=== PATIENT | male | born 1970 | race Two or more races ===

== ENCOUNTER 2022-10-20 22:11 | Emergency (ER) | payer OTHER ==
[2022-10-20] MEDS ORDERED: KETOROLAC 15 MG/ML 1 ML VIAL IM STA (22:33)
[2022-10-20] MEDS ORDERED: DEXAMETHASONE SOD PHOSPHATE 10 MG/ML 1 ML VIAL IM STA (22:33)
--- NOTE | 2022-10-20 22:36 | ED ---
General Adult HPI <Jorge Jean - Last Filed: 10/20/22 22:35> <Marivel Grossman - Last Filed: 10/21/22 16:37> - General Stated complaint: Suicidal, back pain Time Seen by Provider: 10/20/22 22:14 - History of Present Illness Initial comments: Dictation was produced using [employer] dictation software. please excuse any grammatical, word or spelling errors. Chief Complaint: 52-year-old male presents with suicidal ideation History of Present Illness: 52-year-old male he presents with suicidal ideation. He wants a mental health evaluation does not have a specific plan. Patient was just admitted to [facility] detox facility. Patient allegedly had an exacerbation of his chronic back pain. He was denied his home pain medications to treat his back pain because it contains opiates. He was given the option to leave. He discharged himself to [facility] on [facility] [place] into our emergency department. Denies any visual or auditory hallucinations. Patient isn't suicidal for several months since relapsing on crack cocaine The ROS documented in this emergency department record has been reviewed and confirmed by me. Those systems with pertinent positive or negative responses have been documented in the HPI. All other systems are other negative and/or noncontributory. (Jorge Jean) - Related Data Allergies Allergy/AdvReac Type Severity Reaction Status Date / Time No Known Allergies Allergy Verified 10/20/22 22:42 Review of Systems ROS Other: All systems not noted in ROS Statement are negative. <Jorge Jean - Last Filed: 10/20/22 22:35> ROS Other: All systems not noted in ROS Statement are negative. <Marivel Grossman - Last Filed: 10/21/22 16:37> ROS Statement: Those systems with pertinent positive or pertinent negative responses have been documented in the HPI. General Exam <Jorge Jean - Last Filed: 10/20/22 22:35> - General Exam Comments Initial Comments: PHYSICAL EXAM: General Impression: Alert and oriented x3, not in acute distress HEENT: Normocephalic atraumatic, extra-ocular movements intact, pupils equal and reactive to light bilaterally, mucous membranes moist. Cardiovascular: Heart regular rate and rhythm Chest: Able to complete full sentences, no retractions, no tachypnea Abdomen: abdomen soft, non-tender, non-distended, no organomegaly Musculoskeletal: Pulses present and equal in all extremities, no peripheral edema Motor: no focal deficits noted Neurological: CN II-XII grossly intact, no focal motor or sensory deficits noted Skin: Intact with no visualized rashes Psych: Normal affect and mood (Jorge Jean) Course Vital Signs 10/20/22 10/21/22 10/21/22 22:42 00:46 03:35 Temperature 97.5 F L Pulse Rate 89 78 Respiratory 18 16 16 Rate Blood Pressure 129/98 128/78 O2 Sat by Pulse 100 95 Oximetry 10/21/22 10/21/22 07:01 11:40 Temperature 98.0 F Pulse Rate 69 Respiratory 16 18 Rate Blood Pressure 103/67 O2 Sat by Pulse 97 Oximetry Medical Decision Making <Jorge Jean - Last Filed: 10/20/22 22:35> - Medical Decision Making Was pt. sent in by a medical professional or institution (, PA, SIGNS SALES REPRESENTATIVE, urgent care, hospital, or longterm...) When possible be specific @ -No Did you speak to anyone other than the patient for history (EMS, parent, family, police, friend...)? What history was obtained from this source @ -No Did you review nursing and triage notes (agree or disagree)? Why? @ -I reviewed and agree with nursing and triage notes Were old charts reviewed (outside hosp., previous admission, EMS record, old EKG, old radiological studies, urgent care reports/EKG's, longterm records)? Report findings @ -No old charts were reviewed Differential Diagnosis (chest pain, altered mental status, abdominal pain women, abdominal pain men, vaginal bleeding, musculoskeletal, weakness, fever, dyspnea, syncope, headache, dizziness, GI bleed, back pain, seizure, CVA, palpatations, mental health)? @ -Differential Mental Health: Depression, anxiety, bipolar, psychosis, schizophrenia, borderline personality, situational depression, adjustment disorder, behavioral disorder, brain tumor, malingering, substance abuse, encephalopathy, medication reaction, dementia, hypothyroidism, degenerative neurologic disorder, lupus.... This is not meant to be all-inclusive list EKG interpreted by me (3pts min.). @ -None done X-rays interpreted by me (1pt min.). @ -None done CT interpreted by me (1pt min.). @ -None done U/S interpreted by me (1pt. min.). @ -None done What testing was considered but not performed or refused? (CT, X-rays, U/S, labs)? Why? @ -None What meds were considered but not given or refused? Why? @ -None Did you discuss the management of the patient with other professionals (professionals i.e. , PA, SIGNS SALES REPRESENTATIVE, lab, RT, psych nurse, social media executive, casket upholsterer, teacher, first aid officer, rn field case manager)? Give summary @ -No Was smoking cessation discussed for >3mins.? @ -No Was critical care preformed (if so, how long)? @ -No Were there social determinants of health that impacted care today? How? (Homelessness, low income, unemployed, alcoholism, drug addiction, transportation, low edu. Level, literacy, decrease access to med. care, skilled nursing, rehab)? @ -No Was there de-escalation of care discussed even if they declined (Discuss DNR or withdrawal of care, Hospice)? DNR status @ -No What co-morbidities impacted this encounter? (DM, HTN, Smoking, COPD, CAD, Cancer, CVA, ARF, Chemo, Hep., AIDS, mental health diagnosis, sleep apnea, morbid obesity)? @ -None Was patient admitted / discharged? Hospital course, mention meds given and route, prescriptions, significant lab abnormalities, going to OR and other pertinent info. @ -Old male seeking mental health evaluation. Patient reports suicidality. Vital signs stable. Physical examination is benign. Patient requesting I am treatment for acute on chronic back pain. Patient medically cleared for EPS. Undiagnosed new problem with uncertain prognosis? @ -No Drug Therapy requiring intensive monitoring for toxicity (Heparin, Nitro, Insul in, Cardizem)? @ -No Were any procedures done? @ -No Diagnosis/symptom? Acute, or Chronic, or Acute on Chronic? Uncomplicated (without systemic symptoms) or Complicated (systemic symptoms)? @ -1. Suicidal ideation Side effects of treatment? @ -No Exacerbation, Progression, or Severe Exacerbation? @ -No Poses a threat to life or bodily function? How? (Chest pain, [place], [place], pneumonia, PE, COPD, DKA, ARF, appy, cholecystitis, CVA, Diverticulitis, Homicidal, Suicidal, threat to staff... and all critical care pts) @ -yes (Jorge Jean) - Lab Data Lab Results 10/21/22 10/21/22 Range/Units 04:17 04:17 Urine Color Yellow Urine Appearance Clear (Clear) Urine pH 6.0 (5.0-8.0) Ur Specific [place] 1.022 (1.001-1.035) Urine Protein Negative (Negative) Urine Glucose (UA) Negative (Negative) Urine Ketones Negative (Negative) Urine Blood Negative (Negative) Urine Nitrite Negative (Negative) Urine Bilirubin Negative (Negative) Urine Urobilinogen <2.0 (<2.0) mg/dL Ur Leukocyte Esterase Negative (Negative) Urine Opiates Screen Not Detected (NotDetected) Ur Oxycodone Screen Not Detected (NotDetected) Urine Methadone Screen Not Detected (NotDetected) Ur Propoxyphene Screen Not Detected (NotDetected) Ur Barbiturates Screen Not Detected (NotDetected) U Tricyclic Antidepress Not Detected (NotDetected) Ur Phencyclidine Scrn Not Detected (NotDetected) Ur Amphetamines Screen Not Detected (NotDetected) U Methamphetamines Scrn Not Detected (NotDetected) U Benzodiazepines Scrn Not Detected (NotDetected) Urine Cocaine Screen Not Detected (NotDetected) U Marijuana (THC) Screen Detected H (NotDetected) Disposition <Jorge Jean - Last Filed: 10/20/22 22:35> Is patient prescribed a controlled substance at d/c from ED?: No Time of Disposition: 16:37 <Marivel Grossman - Last Filed: 10/21/22 16:37> Clinical Impression: Depression Disposition: HOME SELF-CARE Condition: Stable Instructions (If sedation given, give patient instructions): Depression in Older Adults (ED) Referrals: None,Stated [REFERRING] - 1-2 days
[2022-10-21] MEDS ORDERED: MAG HYDROX/AL HYDROX/SIMETH 30 ML CUP PO PRN (01:58)
[2022-10-21] MEDS ORDERED: traZODone HCL 50 MG TAB PO PRN (01:58)
[2022-10-21] MEDS ORDERED: MAGNESIUM HYDROXIDE 2,400 MG/30 ML CUP PO PRN (01:58)
[2022-10-21] MEDS ORDERED: OLANZapine 10 MG VIAL IM PRN (01:58)
[2022-10-21] MEDS ORDERED: OLANZapine 5 MG TAB PO PRN (01:58)
[2022-10-21] MEDS ORDERED: IBUPROFEN 600 MG TAB PO PRN (01:58)
[2022-10-21] MEDS ORDERED: ACETAMINOPHEN TAB 325 MG TAB PO PRN (01:58)
[2022-10-21] MEDS ORDERED: hydrOXYzine pamoate 25 MG CAP PO PRN (02:02)
[2022-10-21] MEDS ORDERED: hydrOXYzine HCL 50 MG/ML 1 ML VIAL IM PRN (02:02)
[2022-10-21 04:44] LABS: Appearance,Urine Clear (Clear); Bilirubin,Urine Negative (Negative); Blood,Urine Negative (Negative); Color,Urine Yellow; Glucose,Urine (UA) Negative (Negative); Ketones,Urine Negative (Negative); Leukocyte Esterase,Urine Negative (Negative); Nitrite,Urine Negative (Negative); Protein,Urine Negative (Negative); Specific Gravity,Urine 1.022 (1.001-1.035); Urobilinogen,Urine <2.0 mg/dL (<2.0)
[2022-10-21 05:03] LABS: Amphetamine Screen,Urine Not Detected (NotDetected); Barbiturate Screen,Urine Not Detected (NotDetected); Benzodiazepines Screen,Urine Not Detected (NotDetected); Cocaine Screen,Urine Not Detected (NotDetected); Methadone Screen, Urine Not Detected (NotDetected); Opiate Screen,Urine Not Detected (NotDetected); Oxycodone Screen, Urine Not Detected (NotDetected); Phencyclidine Screen,Urine Not Detected (NotDetected); Tricyclic Antidepressant,Urine Not Detected (NotDetected); Urn Cannabinoid Scrn Detected (NotDetected)
[2022-10-21] MEDS ORDERED: NICOTINE 21MG/24HR PATCH TRANSDERM SCH (09:00)
[2022-10-21 11:41] VITALS: RESP 18; TEMP 98
[2022-10-21 16:51] VITALS: BP 144/74; PULSE 83
== END 2022-10-21 17:01 | disposition home or self-care (01) ==
LOC: EC 22:11
DX: F32.A Depression, unspecified (principal)
CPT/HCPCS: 82075; 81003; 80306; 99285; 96372 ×2; S4990; J1100; J1885

== ENCOUNTER 2022-10-22 12:24 | Inpatient (IN) | payer OTHER ==
--- NOTE | 2022-10-22 12:40 | ED ---
General Adult HPI - General Chief complaint: Altered Mental Status Stated complaint: Altered Mental Status Time Seen by Provider: 10/22/22 12:27 Source: patient, EMS, RN notes reviewed Mode of arrival: EMS Limitations: altered mental status - History of Present Illness Initial comments: Patient is a 52-year-old male presenting to the emergency department with concern for change in mental status. Patient reportedly left [facility] a couple hours ago and was there for depression. Patient is drowsy and will wake up and answer 1 word when continuously prompted. Patient is a poor historian. Unclear patient has history of similar symptoms previously. Patient denies taking any substances. - Related Data Allergies Allergy/AdvReac Type Severity Reaction Status Date / Time No Known Allergies Allergy Verified 10/20/22 22:42 Review of Systems ROS Statement: Those systems with pertinent positive or pertinent negative responses have been documented in the HPI. ROS Other: All systems not noted in ROS Statement are negative. Constitutional: Denies: fever ENT: Denies: ear pain Respiratory: Denies: cough Cardiovascular: Denies: chest pain Endocrine: Denies: fatigue Gastrointestinal: Denies: abdominal pain Neurological: Reports: as per HPI Psychiatric: Reports: as per HPI Past Medical History Additional Past Medical History / Comment(s): CLBP Past Surgical History: No Surgical Hx Reported Past Psychological History: Anxiety, Depression Smoking Status: Current every day smoker Past Alcohol Use History: Occasional Past Drug Use History: Cocaine General Exam Limitations: altered mental status General appearance: other (Drowsy. Arousable to voice) Head exam: Present: atraumatic Eye exam: Present: normal appearance, PERRL, EOMI ENT exam: Present: normal oropharynx Neck exam: Present: normal inspection. Absent: tenderness, meningismus Respiratory exam: Present: normal lung sounds bilaterally Cardiovascular Exam: Present: regular rate, normal rhythm GI/Abdominal exam: Present: soft. Absent: tenderness Extremities exam: Present: normal inspection Neurological exam: Present: altered, CN II-XII intact. Absent: motor sensory deficit Expanded Neurological exam: Present: protecting the airway Patient oriented to: Present: person, place. Absent: time Motor strength exam: RUE: 5, LUE: 5, RLE: 5, LLE: 5 Eye Response: (4) open spontaneously Motor Response: (6) obeys commands Verbal Response: (4) confused conversation Psychiatric exam: Present: flat affect Skin exam: Present: normal color Course Vital Signs 10/22/22 12:26 Temperature 97.6 F Pulse Rate 91 Respiratory 18 Rate Blood Pressure 122/86 O2 Sat by Pulse 97 Oximetry EKG Findings - EKG Results: EKG: interpreted by МАРИНАD, sinus rhythm, normal axis, normal QRS, normal ST/T Medical Decision Making - Medical Decision Making Was pt. sent in by a medical professional or institution (, BRAULIO, CHILDCARE WORKER, urgent care, hospital, or [facility]...) When possible be specific @ -No Did you speak to anyone other than the patient for history (EMS, parent, family, police, friend...)? What history was obtained from this source @ -EMS tells right history as patient is a poor historian and with decreased responsiveness Did you review nursing and triage notes (agree or disagree)? Why? @ -I reviewed and agree with nursing and triage notes Were old charts reviewed (outside hosp., previous admission, EMS record, old EKG, old radiological studies, urgent care reports/EKG's, mcc records)? Report findings @ -Discharge summary reviewed with limited information from [facility] Differential Diagnosis (chest pain, altered mental status, abdominal pain women, abdominal pain men, vaginal bleeding, weakness, fever, dyspnea, syncope, headache, dizziness, GI bleed, back pain, seizure, CVA, palpatations, mental health, musculoskeletal)? @ -Differential Altered Mental Status: Hypoglycemia, DKA, hypercapnia, ETOH, overdose, CO poisoning, trauma, myxedema coma, HTN encephalopathy, infection, encephalitis, psychosis, intercranial hemorrhage, hepatic encephalopathy, meningitis, CVA, this is not meant to be an all-inclusive list EKG interpreted by me (3pts min.). @ -As above X-rays interpreted by me (1pt min.). @ -Chest x-ray shows no acute process CT interpreted by me (1pt min.). @ -CT brain reviewed report U/S interpreted by me (1pt. min.). @ -None done What testing was considered but not performed or refused? (CT, X-rays, U/S, l abs)? Why? @ -None What meds were considered but not given or refused? Why? @ -None Did you discuss the management of the patient with other professionals (professionals i.e. BRAULIO Hollins, CHILDCARE WORKER, lab, RT, psych nurse, mental health social worker, blueprint cutter, teacher, forestry technical officer, nurse case management)? Give summary @ -Case was discussed with Dr. Reyes, who will admit covering hospital call. Was smoking cessation discussed for >3mins.? @ -No Was critical care preformed (if so, how long)? @ -No Were there social determinants of health that impacted care today? How? (Homelessness, low income, unemployed, alcoholism, drug addiction, tra nsportation, low edu. Level, literacy, decrease access to med. care, correction, rehab)? @ -No Was there de-escalation of care discussed even if they declined (Discuss DNR or withdrawal of care, Hospice)? DNR status @ -No What co-morbidities impacted this encounter? (DM, HTN, Smoking, COPD, CAD, Cancer, CVA, ARF, Chemo, Hep., AIDS, mental health diagnosis, sleep apnea, morbid obesity)? @ -None Was patient admitted / discharged? Hospital course, mention meds given and route, prescriptions, significant lab abnormalities, going to OR and other pertinent info. @ -Patient reevaluated and unchanged. Etiology of altered mental status is unclear. Patient does have history of cocaine use with recent abnormal drug screen. Patient also has recent complaints of depression with 2 recent visits. Patient will be admitted with neurology and psychiatry consult. Undiagnosed new problem with uncertain prognosis? @ -No Drug Therapy requiring intensive monitoring for toxicity (Heparin, Nitro, Insulin, Cardizem)? @ -No Were any procedures done? @ -No Diagnosis/symptom? @ -Altered mental status Acute, or Chronic, or Acute on Chronic? @ -Acute Uncomplicated (without systemic symptoms) or Complicated (systemic symptoms)? @ -default Side effects of treatment? @ -No Exacerbation, Progression, or Severe Exacerbation? @ -No Poses a threat to life or bodily function? How? (Chest pain, [place], [place], pneumonia, PE, COPD, DKA, ARF, appy, cholecystitis, CVA, Diverticulitis, Homicidal, Suicidal, threat to staff... and all critical care pts) @ -No - Lab Data Result diagrams: 10/22/22 12:39 10/22/22 12:39 Lab Results 10/22/22 10/22/22 10/22/22 Range/Units 12:39 12:39 12:39 WBC 11.0 H (3.8-10.6) k/uL RBC 4.20 L (4.30-5.90) m/uL Hgb 13.5 (13.0-17.5) gm/dL Hct 39.6 (39.0-53.0) % MCV 94.4 (80.0-100.0) fL MCH 32.1 (25.0-35.0) pg MCHC 34.0 (31.0-37.0) g/dL RDW 12.7 (11.5-15.5) % Plt Count 193 (150-450) k/uL MPV 9.1 Neutrophils % 76 % Lymphocytes % 17 % Monocytes % 5 % Eosinophils % 1 % Basophils % 0 % Neutrophils # 8.4 H (1.3-7.7) k/uL Lymphocytes # 1.9 (1.0-4.8) k/uL Monocytes # 0.6 (0-1.0) k/uL Eosinophils # 0.1 (0-0.7) k/uL Basophils # 0.0 (0-0.2) k/uL PT 10.5 (9.0-12.0) sec INR 1.0 (<1.2) APTT 22.8 (22.0-30.0) sec Sodium (137-145) mmol/L Potassium (3.5-5.1) mmol/L Chloride (98-107) mmol/L Carbon Dioxide (22-30) mmol/L Anion Gap mmol/L BUN (9-20) mg/dL Creatinine (0.66-1.25) mg/dL Est GFR (CKD-EPI)AfAm (>60 ml/min/1.73 sqM) Est GFR (CKD-EPI)NonAf (>60 ml/min/1.73 sqM) Glucose (74-99) mg/dL POC Glucose (mg/dL) (70-110) mg/dL POC Glu Display Specialist ID Calcium (8.4-10.2) mg/dL Total Bilirubin (0.2-1.3) mg/dL AST (17-59) U/L ALT (4-49) U/L Alkaline Phosphatase (38-126) U/L Troponin I (0.000-0.034) ng/mL Total Protein (6.3-8.2) g/dL Albumin (3.5-5.0) g/dL Urine Color Light Yellow Urine Appearance Clear (Clear) Urine pH 6.0 (5.0-8.0) Ur Specific [place] 1.014 (1.001-1.035) Urine Protein Negative (Negative) Urine Glucose (UA) Negative (Negative) Urine Ketones Negative (Negative) Urine Blood Negative (Negative) Urine Nitrite Negative (Negative) Urine Bilirubin Negative (Negative) Urine Urobilinogen <2.0 (<2.0) mg/dL Ur Leukocyte Esterase Negative (Negative) Salicylates mg/dL Urine Opiates Screen Not Detected (NotDetected) Ur Oxycodone Screen Not Detected (NotDetected) Urine Methadone Screen Not Detected (NotDetected) Ur Propoxyphene Screen Not Detected (NotDetected) Acetaminophen ug/mL Ur Barbiturates Screen Not Detected (NotDetected) U Tricyclic Antidepress Detected H (NotDetected) Ur Phencyclidine Scrn Not Detected (NotDetected) Ur Amphetamines Screen Not Detected (NotDetected) U Methamphetamines Scrn Not Detected (NotDetected) U Benzodiazepines Scrn Not Detected (NotDetected) Urine Cocaine Screen Not Detected (NotDetected) U Marijuana (THC) Screen Not Detected (NotDetected) Serum Alcohol mg/dL 10/22/22 10/22/22 10/22/22 Range/Units 12:39 12:39 12:41 WBC (3.8-10.6) k/uL RBC (4.30-5.90) m/uL Hgb (13.0-17.5) gm/dL Hct (39.0-53.0) % MCV (80.0-100.0) fL MCH (25.0-35.0) pg MCHC (31.0-37.0) g/dL RDW (11.5-15.5) % Plt Count (150-450) k/uL MPV Neutrophils % % Lymphocytes % % Monocytes % % Eosinophils % % Basophils % % Neutrophils # (1.3-7.7) k/uL Lymphocytes # (1.0-4.8) k/uL Monocytes # (0-1.0) k/uL Eosinophils # (0-0.7) k/uL Basophils # (0-0.2) k/uL PT (9.0-12.0) sec INR (<1.2) APTT (22.0-30.0) sec Sodium 136 L (137-145) mmol/L Potassium 4.1 (3.5-5.1) mmol/L Chloride 108 H (98-107) mmol/L Carbon Dioxide 25 (22-30) mmol/L Anion Gap 3 mmol/L BUN 21 H (9-20) mg/dL Creatinine 0.95 (0.66-1.25) mg/dL Est GFR (CKD-EPI)AfAm >90 (>60 ml/min/1.73 sqM) Est GFR (CKD-EPI)NonAf >90 (>60 ml/min/1.73 sqM) Glucose 88 (74-99) mg/dL POC Glucose (mg/dL) 95 (70-110) mg/dL POC Glu Display Specialist ID Baljinder Ramírez Calcium 8.4 (8.4-10.2) mg/dL Total Bilirubin 1.2 (0.2-1.3) mg/dL AST 18 (17-59) U/L ALT 18 (4-49) U/L Alkaline Phosphatase 51 (38-126) U/L Troponin I <0.012 (0.000-0.034) ng/mL Total Protein 6.7 (6.3-8.2) g/dL Albumin 3.8 (3.5-5.0) g/dL Urine Color Urine Appearance (Clear) Urine pH (5.0-8.0) Ur Specific [place] (1.001-1.035) Urine Protein (Negative) Urine Glucose (UA) (Negative) Urine Ketones (Negative) Urine Blood (Negative) Urine Nitrite (Negative) Urine Bilirubin (Negative) Urine Urobilinogen (<2.0) mg/dL Ur Leukocyte Esterase (Negative) Salicylates <1.0 mg/dL Urine Opiates Screen (NotDetected) Ur Oxycodone Screen (NotDetected) Urine Methadone Screen (NotDetected) Ur Propoxyphene Screen (NotDetected) Acetaminophen <10.0 ug/mL Ur Barbiturates Screen (NotDetected) U Tricyclic Antidepress (NotDetected) Ur Phencyclidine Scrn (NotDetected) Ur Amphetamines Screen (NotDetected) U Methamphetamines Scrn (NotDetected) U Benzodiazepines Scrn (NotDetected) Urine Cocaine Screen (NotDetected) U Marijuana (THC) Screen (NotDetected) Serum Alcohol <10 mg/dL Disposition Clinical Impression: Altered mental status Disposition: ADMITTED IP TO THIS HOSP Is patient prescribed a controlled substance at d/c from ED?: No Referrals: Nonstaff,Physician [Primary Care Provider] - 1-2 days Time of Disposition: 14:06
[2022-10-22 12:43] LABS: Glucose,Whole Blood 95 mg/dL (70-110)
[2022-10-22 12:56] LABS: Basophils % (A) 0 %; Eosinophils # (A) 0.1 k/uL (0-0.7); Eosinophils % (A) 1 %; HCT 39.6 % (39.0-53.0); HGB 13.5 gm/dL (13.0-17.5); Lymphocytes # (A) 1.9 k/uL (1.0-4.8); Lymphocytes % (A) 17 %; MCH 32.1 pg (25.0-35.0); MCV 94.4 fL (80.0-100.0); Mean Platelet Volume 9.1; Monocytes # (A) 0.6 k/uL (0-1.0); Monocytes % (A) 5 %; Neutrophils # (A) 8.4 k/uL (1.3-7.7); Neutrophils % (A) 76 %; Platelet Count 193 k/uL (150-450); RDW 12.7 % (11.5-15.5)
[2022-10-22 12:58] LABS: Appearance,Urine Clear (Clear); Bilirubin,Urine Negative (Negative); Blood,Urine Negative (Negative); Color,Urine Light Yellow; Glucose,Urine (UA) Negative (Negative); Ketones,Urine Negative (Negative); Leukocyte Esterase,Urine Negative (Negative); Nitrite,Urine Negative (Negative); Protein,Urine Negative (Negative); Specific Gravity,Urine 1.014 (1.001-1.035); Urobilinogen,Urine <2.0 mg/dL (<2.0)
[2022-10-22 13:01] LABS: ALT 18 U/L (4-49); AST 18 U/L (17-59); Acetaminophen <10.0 ug/mL; African American GFR (CKD) >90 (>60 ml/min/1.73 sqM); Albumin 3.8 g/dL (3.5-5.0); Alcohol <10 mg/dL; Alkaline Phosphatase 51 U/L (38-126); Anion Gap 3 mmol/L; Blood Urea Nitrogen 21 mg/dL (9-20); Calcium 8.4 mg/dL (8.4-10.2); Carbon Dioxide 25 mmol/L (22-30); Chloride 108 mmol/L (98-107); Glucose 88 mg/dL (74-99); Non-African American GFR(CKD) >90 (>60 ml/min/1.73 sqM); Potassium 4.1 mmol/L (3.5-5.1); Salicylate <1.0 mg/dL; Sodium 136 mmol/L (137-145); Total Bilirubin 1.2 mg/dL (0.2-1.3); Total Protein 6.7 g/dL (6.3-8.2)
[2022-10-22 13:16] LABS: Amphetamine Screen,Urine Not Detected (NotDetected); Benzodiazepines Screen,Urine Not Detected (NotDetected); Cocaine Screen,Urine Not Detected (NotDetected); Opiate Screen,Urine Not Detected (NotDetected); Phencyclidine Screen,Urine Not Detected (NotDetected); Tricyclic Antidepressant,Urine Detected (NotDetected); Urn Cannabinoid Scrn Not Detected (NotDetected)
[2022-10-22 13:17] LABS: Barbiturate Screen,Urine Not Detected (NotDetected); Methadone Screen, Urine Not Detected (NotDetected); Oxycodone Screen, Urine Not Detected (NotDetected)
[2022-10-22 13:24] LABS: Partial Thromboplastin Time 22.8 sec (22.0-30.0); Prothrombin Time 10.5 sec (9.0-12.0)
--- NOTE | 2022-10-22 13:25 | CT ---
EXAMINATION TYPE: CT brain wo con CT DLP: 901.3 mGycm, Automated exposure control for dose reduction was used. DATE OF EXAM: 10/22/2022 1:19 PM COMPARISON: None. CLINICAL INDICATION:Male, 52 years old with history of Altered mental status, Altered mental status. TECHNIQUE: Brain: Multiple axial CT images of the brain were obtained without IV contrast. Coronal and sagittal reformats reviewed. FINDINGS: Brain: Extra-axial spaces: No abnormal extra-axial fluid collections. Ventricular system: Within normal limits Cerebral parenchyma: No acute intraparenchymal hemorrhage or mass effect. The grey-white junction is well differentiated. Cerebellum: Unremarkable. Mass effect: No evidence of midline shift. Intracranial vasculature: Atherosclerotic calcifications of the intracranial vessels. Soft tissues: Normal. Calvarium/osseous structures: No depressed skull fracture. Paranasal sinuses and mastoid air cells: Clear Visualized orbits: Orbital contents are intact. IMPRESSION: No acute intracranial process.
--- NOTE | 2022-10-22 13:52 | XR ---
EXAMINATION TYPE: XR chest 2V DATE OF EXAM: 10/22/2022 1:46 PM COMPARISON: None TECHNIQUE: XR chest 2V Frontal and lateral views of the chest. CLINICAL INDICATION:Male, 52 years old with history of altered mental status; FINDINGS: Lungs/Pleura: There is no evidence of pleural effusion, focal consolidation, or pneumothorax. Pulmonary vascularity: Unremarkable. Heart/mediastinum: Cardiomediastinal silhouette is enlarged. Musculoskeletal: No acute osseous pathology. IMPRESSION: 1. No acute cardiopulmonary disease/process. 2. Mild cardiomegaly.
[2022-10-22] MEDS ORDERED: NALOXONE 0.4 MG/ML 1 ML VIAL IV PRN (14:06)
[2022-10-22] MEDS: SODIUM CHLORIDE 0.9% 1,000 ML IV SCH (14:33)
--- NOTE | 2022-10-22 15:19 | P.HPIM ---
History of Present Illness This is a pleasant 52 years old male with past medical history of anxiety/depression and nicotine dependence Patient is very drowsy and could not provide information, he went up to verbal and tactile stimuli, as her wound about 2 questions and then go back to sleep. And then he mumbles he follows some COMMANDS and simple 1. However patient could denies some the systemic review Further information were obtained from the chart and staff. pt brought in via ems from scene. pt was found wondering around [facility]. pt was recently d/c from [facility] at 9am for depression. pt presents with AMS at this time. Yesterday was in this facility for suicidal ideation Patient is afebrile. Blood pressure is 122/86 at 96/71 Labs showing mild leukocytosis of 11,000, associated CBC, INR, BMP, liver enzymes is unremarkable. Urine analysis is undetectable. Urine drug screen is positive for tricyclic antidepressant. Serum alcohol less than 10. Salicylate less than 1. Acetaminophen was less than 10 Chest x-ray: No acute process, mild cardiomegaly CT of the brain: No acute process. EKG showing normal sinus rhythm at [address]-T changes In the emergency room patient was started on normal saline and admitted with si gns and neuro consult Review of Systems Review of systems CONSTITUTIONAL: No fever, no malaise, no fatigue. HEENT: No recent visual problems or hearing problems. Denied any sore throat. CARDIOVASCULAR: No orthopnea, PND, no palpitations, no syncope. PULMONARY: No shortness of breath, no cough, no hemoptysis. GASTROINTESTINAL: No diarrhea, no nausea, no vomiting, no abdominal pain. Normoactive bowel sounds. NEUROLOGICAL: No headaches, no weakness, no numbness. HEMATOLOGICAL: Denies any bleeding or petechiae. GENITOURINARY: Denies any burning micturition, frequency, or urgency. MUSCULOSKELETAL/RHEUMATOLOGICAL: Denies any joint pain, swelling, or any muscle pain. ENDOCRINE: Denies any polyuria or polydipsia. ROS unobtainable: due to mental status Past Medical History Additional Past Medical History / Comment(s): CLBP Past Surgical History: No Surgical Hx Reported Past Psychological History: Anxiety, Depression Smoking Status: Current every day smoker Past Alcohol Use History: Occasional Past Drug Use History: Cocaine Medications and Allergies Home Medications Medication Instructions Recorded Confirmed Type Albuterol Sulfate [Albuterol 2 puff PO RT-Q6H PRN 10/22/22 10/22/22 History Sulfate Hfa] Cyclobenzaprine [Flexeril] 10 mg PO Q8H PRN 10/22/22 10/22/22 History Ibuprofen [Motrin] 600 mg PO Q6H PRN 10/22/22 10/22/22 History Meloxicam 7.5 mg PO DAILY 10/22/22 10/22/22 History Tamsulosin [Flomax] 0.4 mg PO DAILY 10/22/22 10/22/22 History Vortioxetine Hydrobromide 10 mg PO DAILY 10/22/22 10/22/22 History [Trintellix] traMADol HCL 50 mg PO Q8H PRN 10/22/22 10/22/22 History Allergies Allergy/AdvReac Type Severity Reaction Status Date / Time No Known Allergies Allergy Verified 10/22/22 15:07 Physical Exam Vitals: Vital Signs Temp Pulse Resp BP Pulse Ox 10/22/22 12:26 97.6 F 91 18 122/86 97 Intake and Output 10/21/22 10/22/22 10/22/22 22:59 06:59 14:59 Other: Weight 92.986 kg -GENERAL: The patient awakens to verbal stimuli but doesn't go back to sleep. Excess 1 or 2 questions appropriately and then mumbles. HEENT: Pupils are round and equally reacting to light. EOMI. No scleral icterus. No conjunctival pallor. Normocephalic, atraumatic. No pharyngeal erythema. No thyromegaly. CARDIOVASCULAR: S1 and S2 present. No murmurs, rubs, or gallops. PULMONARY: Chest is clear to auscultation, no wheezing , no crackles. ABDOMEN: Soft, nontender, nondistended, normoactive bowel sounds. No palpable or ganomegaly. MUSCULOSKELETAL: No joint swelling or deformity. EXTREMITIES: No cyanosis, clubbing, or pedal edema. NEUROLOGICAL: Gross neurological examination did not reveal any focal deficits. SKIN: No rashes. no petechiae. Results CBC & Chem 7: 10/22/22 12:39 10/22/22 12:39 Labs: Abnormal Lab Results - Last 24 Hours (Table) 10/22/22 10/22/22 10/22/22 Range/Units 12:39 12:39 12:39 WBC 11.0 H (3.8-10.6) k/uL RBC 4.20 L (4.30-5.90) m/uL Neutrophils # 8.4 H (1.3-7.7) k/uL Sodium 136 L (137-145) mmol/L Chloride 108 H (98-107) mmol/L BUN 21 H (9-20) mg/dL U Tricyclic Antidepress Detected H (NotDetected) Assessment and Plan Assessment: Altered mental status, unknown etiology Borderline hypotension History of depression Plan: Neurologic evaluation with a neuro check c/w iv hydration Consult with neurology and psychiatry service Labs and medication were reviewed.. Continue same treatment. Continue with symptomatic treatment. Resume home medication. Monitor labs and vitals. DVT and GI prophylaxis. Further recommendations as per clinical course of the patient DVT prophylaxis: Subcutaneous heparin GI Prophylaxis: Pepcid Prognosis is guarded
[2022-10-22 16:08] LABS: Alcohol <10 mg/dL
[2022-10-22] MEDS: THIAMINE 100 MG TAB PO SCH (17:44)
[2022-10-22] MEDS: HEPARIN SODIUM,PORCINE/PF 5,000 UNIT/0.5 ML SYRINGE SQ SCH (21:08)
[2022-10-22] MEDS: FAMOTIDINE 20 MG/2 ML VIAL IV SCH (21:08)
[2022-10-23] MEDS: SODIUM CHLORIDE 0.9% 1,000 ML IV SCH ×2 (04:40→18:14)
[2022-10-23 08:33] LABS: Basophils % (A) 0 %; Eosinophils # (A) 0.1 k/uL (0-0.7); Eosinophils % (A) 1 %; HCT 40.9 % (39.0-53.0); HGB 13.7 gm/dL (13.0-17.5); Lymphocytes # (A) 2.6 k/uL (1.0-4.8); Lymphocytes % (A) 33 %; MCH 32.2 pg (25.0-35.0); MCHC 33.6 g/dL (31.0-37.0); MCV 95.9 fL (80.0-100.0); Mean Platelet Volume 9.3; Monocytes # (A) 0.5 k/uL (0-1.0); Monocytes % (A) 6 %; Neutrophils # (A) 4.7 k/uL (1.3-7.7); Neutrophils % (A) 60 %; Platelet Count 197 k/uL (150-450); RBC 4.26 m/uL (4.30-5.90); RDW 12.7 % (11.5-15.5); WBC 7.9 k/uL (3.8-10.6)
[2022-10-23 08:35] LABS: ALT 15 U/L (4-49); AST 16 U/L (17-59); African American GFR (CKD) 88 (>60 ml/min/1.73 sqM); Albumin 3.4 g/dL (3.5-5.0); Albumin/Globulin Ratio 1.3; Alkaline Phosphatase 48 U/L (38-126); Anion Gap 6 mmol/L; Blood Urea Nitrogen 19 mg/dL (9-20); Calcium 8.1 mg/dL (8.4-10.2); Carbon Dioxide 26 mmol/L (22-30); Chloride 105 mmol/L (98-107); Globulin 2.7 g/dL; Glucose 70 mg/dL (74-99); Non-African American GFR(CKD) 76 (>60 ml/min/1.73 sqM); Potassium 4.3 mmol/L (3.5-5.1); Sodium 137 mmol/L (137-145); Total Bilirubin 0.8 mg/dL (0.2-1.3); Total Protein 6.1 g/dL (6.3-8.2)
[2022-10-23] MEDS: HEPARIN SODIUM,PORCINE/PF 5,000 UNIT/0.5 ML SYRINGE SQ SCH ×2 (08:41→21:57)
[2022-10-23] MEDS: THIAMINE 100 MG TAB PO SCH ×2 (08:41→08:42)
[2022-10-23] MEDS: FAMOTIDINE 20 MG/2 ML VIAL IV SCH ×3 (08:41→21:56)
--- NOTE | 2022-10-23 10:03 | P.CNNES ---
History of Present Illness Consult date: 10/23/22 Requesting physician: Alistair Mccall Reason for Consult: ams History of Present Illness: This is a 52-year-old gentleman with history of anxiety, depression, suicidal attempts, cocaine use and nicotine use who presented to our facility because altered mental status. Some of the history is obtained from medical record. Patient stated that he took a bunch of pills but does not recall all of him and he was attempting to kill himself. He stated that he went to the [facility] as a result. Your members taken Flexeril, tramadol and he overtook dose medication but he also states she took other medications and doesn't recall the name. She denies of any headache, focal weakness, numbness, visual disturbance, difficulty swallowing or getting his words out. She denies of any fevers. Per the ED note it seems to the patient was at [facility] and was there for depression. He states that he uses cocaine and less than use it was on 10/11/2022. He stated that he had the multiple foci vital attempts in the past. He denies any history of stroke or seizures. Initially he presented to our facility was altered which has resolved. He does smoke cigarettes. Uses marijuana. He socially drinks alcohol. Patient stated that he has a history of chronic lower back pain with sciatica that is old. Some of the work-up consisted of: Patient is afebrile White blood cells 11K minimally slightly neutrophilic Calcium is 8.4 Sodium is 136 Creatinine is up 0.95 AST and ALT is within normal limits Ammonia is less than 9 Vitamin B12 is 380. Folate is 13.6 TSH is 4.22 Urinalysis is negative for any underlying urinary tract infection Urine drug screen is positive for tricyclic. The rest is not detected. Serum alcohol was less than 10 CT of the head is reported as no acute intracranial process. I personally reviewed the CT of the head and there is no acute or subacute ischemia. Review of Systems Review of system: The 12 point system was reviewed and apparent positive and negative per HPI. Past Medical History Additional Past Medical History / Comment(s): CLBP History of Any Multi-Drug Resistant Organisms: None Reported Past Surgical History: No Surgical Hx Reported Past Psychological History: Anxiety, Depression Smoking Status: Current every day smoker Past Alcohol Use History: Occasional Past Drug Use History: Cocaine Medications and Allergies Home Medications Medication Instructions Recorded Confirmed Type Albuterol Sulfate [Albuterol 2 puff PO RT-Q6H PRN 10/22/22 10/22/22 History Sulfate Hfa] Cyclobenzaprine [Flexeril] 10 mg PO Q8H PRN 10/22/22 10/22/22 History Ibuprofen [Motrin] 600 mg PO Q6H PRN 10/22/22 10/22/22 History Meloxicam 7.5 mg PO DAILY 10/22/22 10/22/22 History Tamsulosin [Flomax] 0.4 mg PO DAILY 10/22/22 10/22/22 History Vortioxetine Hydrobromide 10 mg PO DAILY 10/22/22 10/22/22 History [Trintellix] traMADol HCL 50 mg PO Q8H PRN 10/22/22 10/22/22 History Allergies Allergy/AdvReac Type Severity Reaction Status Date / Time No Known Allergies Allergy Verified 10/22/22 15:07 Physical Examination - Vital Signs Vital Signs: Vital Signs Temp Pulse Pulse Resp BP BP Pulse Ox 10/23/22 02:14 90 18 10/23/22 01:38 97.8 F 80 16 108/70 93 L 10/22/22 21:17 98.0 F 90 18 131/83 97 10/22/22 21:08 90 18 10/22/22 15:41 75 16 10/22/22 15:03 97.9 F 75 16 121/80 97 10/22/22 14:12 80 18 96/71 99 10/22/22 12:26 97.6 F 91 18 122/86 97 Intake and Output 10/22/22 10/23/22 10/23/22 22:59 06:59 14:59 Output Total 750 Balance -750 Output: Urine 750 Other: Voiding Method Urinal Urinal # Voids 2 1 Weight 92.986 kg GENERAL: The patient is lying in bed and is not in acute distress. Skin: Hypopigmentation throughout the body (old). NEUROLOGICAL: Higher mental function: The patient is awake, alert, oriented to self, place and time. Patient is following commands. No aphasia and no neglect. Cranial nerves: The pupils are round, equal and reactive to light and accommodation. Visual chacko are full to confrontation throughout. Extraocular movement is intact no nystagmus is noted. Facial sensation is normal to touch throughout. The facial strength is normal throughout. Hearing is normal bilaterally to hand rub. Tongue is midline and moved [id number] without any difficulty. No dysarthria is noted. Shoulder shrug is normal bilaterally. Motor: The strength is limited over the right lower proximal because of right hip/back pain (old) but raising above gravity. Otherwise. 5 over 5 throughout. Normal tone and bulk. Cerebellum: Normal finger to nose heel to roberto bilaterally. Sensation: Sensation is normal to touch throughout. Reflexes (right/left): 2+ throughout. Plantars are downgoing bilaterally. Results - Laboratory Findings CBC and BMP: 10/23/22 05:25 10/23/22 05:25 Abnormal Lab Findings: Abnormal Labs 10/22/22 10/22/22 10/22/22 12:39 12:39 12:39 WBC 11.0 H RBC 4.20 L Neutrophils # 8.4 H Sodium 136 L Chloride 108 H BUN 21 H U Tricyclic Antidepress Detected H Assessment and Plan Assessment: This is a 52-year-old gentleman who was recently discharged from outside facility because depression and recently he has altered mental status Altered mental status: Toxic encephalopathy and he stated that he overdosed on medications attending that to commit suicide (he took Flexeril, Toradol and stated does not remember other medications). UDS positive for TCA. Mentation has improved and no focal deficits on examination. Multiple suicidal attempts per patient in past Chronic low back pain and right sciatica Depression Cocaine use (last used was on 10/11/2022). UDS positive for TCA Plan: Since the patient does not have any focal deficits and it seems that he is transient confusion was due to toxic encephalopathy in which she overdosed on medication. His mentation has improved. Therefore I will not pursue MRI brain and EEG for now. But if the patient has any further confusions or any focal deficit then recommend proceeding with them. Started the patient on thiamine 100 mg daily. Psychiatry is consulted Patient was counseled on cessation of cocaine use, tobacco use and seeking help for his depression and history of suicidal thoughts. We'll defer the rest of the medical management to the primary team The plan was discussed with patient and his nurse. Thank you for the consultation. If the patient remains stable no further neurological workup. Dr. Hansen will start neurology service tomorrow. Time with Patient: Greater than 30
--- NOTE | 2022-10-23 22:33 | P.PN ---
Subjective This is a pleasant 52 years old male with past medical history of anxiety/depression and nicotine dependence Patient is very drowsy and could not provide information, he went up to verbal and tactile stimuli, as her wound about 2 questions and then go back to sleep. And then he mumbles he follows some COMMANDS and simple 1. However patient vance d denies some the systemic review Further information were obtained from the chart and staff. pt brought in via ems from scene. pt was found wondering around [facility]. pt was recently d/c from [facility] at 9am for depression. pt presents with AMS at this time. Yesterday was in this facility for suicidal ideation Patient is afebrile. Blood pressure is 122/86 at 96/71 Labs showing mild leukocytosis of 11,000, associated CBC, INR, BMP, liver enzymes is unremarkable. Urine analysis is undetectable. Urine drug screen is positive for tricyclic antidepressant. Serum alcohol less than 10. Salicylate less than 1. Acetaminophen was less than 10 Chest x-ray: No acute process, mild cardiomegaly CT of the brain: No acute process. EKG showing normal sinus rhythm at [address]-T changes In the emergency room patient was started on normal saline and admitted with signs and neuro consult 10/23/2022 pt is awake today , say he was trying to kill himself wiht medication inlcuidng 60 pills of flexeril, and unkown amount of pills of tramadol, and a third medication he does not know the name of he admits depression and suicidal ideation and attempt, d/w staff: suicidal precaution , and psych consult and sitter at bed side no need for mri of brain or other neuro w/u as per my discussion with neuro service today his bp is on the low side and pt is asymptomatic, sbp around 90x, before was around 120s, if no improvement we will give more fluids.later on his bp was 120/80 Objective - Vital Signs Vital signs: Vital Signs Temp 97.6 F 10/23/22 15:00 Pulse 80 10/23/22 15:00 Resp 16 10/23/22 15:00 BP 98/62 10/23/22 15:00 Pulse Ox 97 10/23/22 15:00 FiO2 Intake & Output 10/23/22 10/23/22 10/24/22 06:59 18:59 06:59 Output Total 750 1841 Balance -750 -1841 Weight 92.986 kg Output: Urine 750 1841 Other: Voiding Method Urinal Urinal # Voids 1 - Exam -GENERAL: The patient awakens to verbal stimuli but doesn't go back to sleep. Excess 1 or 2 questions appropriately and then mumbles. HEENT: Pupils are round and equally reacting to light. EOMI. No scleral icterus. No conjunctival pallor. Normocephalic, atraumatic. No pharyngeal erythema. No thyromegaly. CARDIOVASCULAR: S1 and S2 present. No murmurs, rubs, or gallops. PULMONARY: Chest is clear to auscultation, no wheezing , no crackles. ABDOMEN: Soft, nontender, nondistended, normoactive bowel sounds. No palpable organomegaly. MUSCULOSKELETAL: No joint swelling or deformity. EXTREMITIES: No cyanosis, clubbing, or pedal edema. NEUROLOGICAL: Gross neurological examination did not reveal any focal deficits. SKIN: No rashes. no petechiae. - Labs CBC & Chem 7: 10/23/22 05:25 10/23/22 05:25 Labs: Abnormal Lab Results - Last 24 Hours (Table) 10/23/22 10/23/22 Range/Units 05:25 05:25 RBC 4.26 L (4.30-5.90) m/uL Glucose 70 L (74-99) mg/dL Calcium 8.1 L (8.4-10.2) mg/dL AST 16 L (17-59) U/L Total Protein 6.1 L (6.3-8.2) g/dL Albumin 3.4 L (3.5-5.0) g/dL Assessment and Plan Assessment: Altered mental status, metabolic encephalopathy derpression and siucidal attempt hypotension, secondary to above, improving medication overdose ,flexeril tramadol and third unknown medication History of depression Plan: Neurologic evaluation with a neuro check c/w iv hydration Consult with neurology and psychiatry service sitter and siucidal ideation Labs and medication were reviewed.. Continue same treatment. Continue with symptomatic treatment. Resume home medication. Monitor labs and vitals. DVT and GI prophylaxis. Further recommendations as per clinical course of the patient DVT prophylaxis: Subcutaneous heparin GI Prophylaxis: Pepcid Prognosis is guarded may consider transfer to psych unit tomorrow if keep improving and appoipiate
[2022-10-24] MEDS: HEPARIN SODIUM,PORCINE/PF 5,000 UNIT/0.5 ML SYRINGE SQ SCH ×2 (09:53→21:18)
[2022-10-24] MEDS: THIAMINE 100 MG TAB PO SCH (09:53)
[2022-10-24] MEDS: FAMOTIDINE 20 MG/2 ML VIAL IV SCH ×2 (09:53→21:17)
[2022-10-24] MEDS: SODIUM CHLORIDE 0.9% 1,000 ML IV SCH ×2 (09:53→21:17)
--- NOTE | 2022-10-24 13:31 | P.CN ---
Psychiatric Consult - . Consult date: 10/24/22 Consult:: 10/24/22 13:01 IDENTIFYING DATA: This patient is a 52-year-old male, currently was living with his girlfriend at her house, has 1 son, worked as a [employer] developer. REASON FOR REFERRAL: Psychiatry was consulted for "altered mental status" HISTORY OF PRESENT ILLNESS: The patient presented to the hospital on 10/22 for altered mental status. According to ER report patient apparently left [facility] a few hours before he was evaluated there for depression and was discharged. Patient was a poor historian at the time of admission to the hospital. Patient's urinalysis was negative and his urine drug screen was positive for TCAs. Patient had apparently reported that he overdosed on various different pills including tramadol and Flexeril. Patient did endorse that it was a suicide attempt and wanted to . Patient was admitted medically and seen today by field underwriter for evaluation. Patient had a one-to-one sitter at his side. He appears to be disinterested in conversation, mildly irritable. He claims that "nothing happened" however one asked more he states that "I took a bunch of pills" and was fairly vague about it. He states that he was "done with life" and has been having more suicidal thoughts lately. States that he is also been feeling more depressed. Claims that he does have some mild anxiety. States that he has been diagnosed with depression and also bipolar disorder in the past. States that he was [facility] years in [facility] and recently released. He claims that the charge was for home invasion. He states that he "lost everything again" and attempted to go to rehab last week for at [place] for his cocaine use. He claims that he lost his car as well due to his finances and also his fiance. He states that he's been using crack cocaine about $250 a day. States that his sleep has been on and off, appetite has been fair. At this time patient denies any homical ideations, intent or plan. Patient denies any auditory, visual hallucinations and denies any paranoia or delusions. Patient claims that he is currently suicidal, no plan. Patients admits to using crack/cocaine as noted above, marijuana occasionally, cigarettes daily, alcohol occasionally. PAST PSYCHIATRIC HISTORY: Patient has a a history of depression and bipolar disorder, polysubstance abuse. Patient denies being on any psychiatric medications currently however states that he was previously on haldol, abilify, prozac and noted a poor response to prozac. Patient denies any previous psychiatric hospitalizations since his [facility] stay where [facility]. Patient denies any psychiatric outpatient follow- up. he states that he has a hx of 5 suicide attempts in the past from overdosing. Additional Past Medical History / Comment(s): CLBP Past Surgical History: No Surgical Hx Reported Past Psychological History: Anxiety, Depression Smoking Status: Current every day smoker Past Alcohol Use History: Occasional Past Drug Use History: Cocaine ALLERGIES: as per EMR. CHEMICAL DEPENDENCY HISTORY: as per HPI. FAMILY PSYCHIATRIC/SUBSTANCE USE HISTORY: mother has depression and brother has bipolar disorder SOCIAL HISTORY: Patient was born and raised in [place], [place], he obtained his GED. currently lives with his girlfriend, in a house, has 1 son, worked as a [employer] developer. claims that was was recently released from [facility] where he spent 17 yrs there for home invasion. MENTAL STATUS EXAM: General Appearance: Patient appears to be well built, white hair, several tattoos, stated age is alert, mildly irritable yet is somewhat cooperative. Pat vicki appears to have fair hygiene and grooming wearing hospital gown with poor eye contact. Behavior: Patient is calmly lying in bed without any agitated behavior. Mildly irritable. Speech: Patient's speech is fluent and nonpressured. [place] and depending. Mood/Affect: Patient reports their mood is "depressed and anxious", affect is congruent Suicidality/Homicidality: Patient denies having any side ideations, endorsing suicidal thoughts. Perceptions: Patient denies any visual hallucinations and denies any auditory hallucinations Though content/process: There is no evidence of any delusional thought content and thought process is linear and goal-directed. Focus on his symptoms and self-harm. Memory and concentration: AOX3, grossly intact for the purposes of this session. Can spell "WORLD" backwards Judgment and insight: poor IMPRESSIONS: Depressive disorder unspecified, rule out bipolar disorder depressed mood versus major depressive disorder Suicide attempt by overdose on medications Cocaine use disorder severe dependence Cannabis use disorder mild abuse Alcohol use disorder mild Nicotine dependence PLAN: -At this time patient DOES meet criteria for inpatient psychiatric admission. -Would recommend the following medication changes/additions: Zoloft 50 mg daily for mood/anxiety, Seroquel 50 mg daily at bedtime for mood stabilization/insomnia. -Continue 1:1 sitter for safety until patient is safely transferred to the mental health unit. -Cannot leave AMA at this time. Patient will need a petition and certification if attempting to leave AMA. -When medically stable, patient is eligible for transfer to a psych bed when available. -Communicated plan to patient's nurse and also with EPS nurse about treatment recommendations. Patient is already petitioned and will need to complete a clinical certificate before transfer. -Psychiatry will sign off at this time -Please contact with any questions. 10/24/22 13:21
[2022-10-24] MEDS ORDERED: CYCLOBENZAPRINE 10 MG TAB PO PRN (20:41)
[2022-10-24] MEDS ORDERED: ALBUTEROL NEBULIZED 2.5 MG/3 ML INHALATION PRN (20:41)
--- NOTE | 2022-10-24 23:23 | P.PN ---
Subjective This is a pleasant 52 years old male with past medical history of anxiety/depression and nicotine dependence Patient is very drowsy and could not provide information, he went up to verbal and tactile stimuli, as her wound about 2 questions and then go back to sleep. And then he mumbles he follows some COMMANDS and simple 1. However patient vance d denies some the systemic review Further information were obtained from the chart and staff. pt brought in via ems from scene. pt was found wondering around [facility]. pt was recently d/c from [facility] [place] at 9am for depression. pt presents with AMS at this time. Yesterday was in this facility for suicidal ideation Patient is afebrile. Blood pressure is 122/86 at 96/71 Labs showing mild leukocytosis of 11,000, associated CBC, INR, BMP, liver enzymes is unremarkable. Urine analysis is undetectable. Urine drug screen is positive for tricyclic antidepressant. Serum alcohol less than 10. Salicylate less than 1. Acetaminophen was less than 10 Chest x-ray: No acute process, mild cardiomegaly CT of the brain: No acute process. EKG showing normal sinus rhythm at [address]-T changes In the emergency room patient was started on normal saline and admitted with signs and neuro consult 10/23/2022 pt is awake today , say he was trying to kill himself wiht medication inlcuidng 60 pills of flexeril, and unkown amount of pills of tramadol, and a third medication he does not know the name of he admits depression and suicidal ideation and attempt, d/w staff: suicidal precaution , and psych consult and sitter at bed side no need for mri of brain or other neuro w/u as per my discussion with neuro service today his bp is on the low side and pt is asymptomatic, sbp around 90x, before was around 120s, if no improvement we will give more fluids.later on his bp was 120/80 10/24/2022 pt is clinically doing well and he looks stable for discharge , he is fully awake and oriented x3, no physical symptoms , he is very withdrawn and staying in bed all time i discussed the case with psychiatrist who accepted the pt to psych unit pt is medically stable for discharge and actually he was discharged to psych unit but this was held for insurance issues per staff pt in am said he does not want to go to psych unit and he was petitioned by staff, cert also is in chart. later on pt told me he is agreeable to be treated in psych unit he agrees with the management plan Objective - Vital Signs Vital signs: Vital Signs Temp 98.6 F 10/24/22 20:00 Pulse 80 10/24/22 20:00 Resp 15 10/24/22 20:00 BP 116/78 10/24/22 20:00 Pulse Ox 95 10/24/22 20:00 FiO2 Intake & Output 10/24/22 10/24/22 10/25/22 06:59 18:59 06:59 Intake Total 118 Balance 118 Intake: Oral 118 Other: Voiding Method Urinal # Voids 2 1 - Exam -GENERAL: The patient awakens to verbal stimuli but doesn't go back to sleep. Excess 1 or 2 questions appropriately and then mumbles. HEENT: Pupils are round and equally reacting to light. EOMI. No scleral icterus. No conjunctival pallor. Normocephalic, atraumatic. No pharyngeal erythema. No thyromegaly. CARDIOVASCULAR: S1 and S2 present. No murmurs, rubs, or gallops. PULMONARY: Chest is clear to auscultation, no wheezing , no crackles. ABDOMEN: Soft, nontender, nondistended, normoactive bowel sounds. No palpable organomegaly. MUSCULOSKELETAL: No joint swelling or deformity. EXTREMITIES: No cyanosis, clubbing, or pedal edema. NEUROLOGICAL: Gross neurological examination did not reveal any focal deficits. SKIN: No rashes. no petechiae. - Labs CBC & Chem 7: 10/23/22 05:25 10/23/22 05:25 Assessment and Plan Assessment: Altered mental status, metabolic encephalopathy derpression and siucidal attempt hypotension, secondary to above, improving medication overdose ,flexeril tramadol and third unknown medication History of depression Plan: pt is medically stable for dc t psych unit pending insurance authorization psychiatry service sitter and siucidal ideation Labs and medication were reviewed.. Continue same treatment. Continue with symptomatic treatment. Resume home medication. Monitor labs and vitals. DVT and GI prophylaxis. Further recommendations as per clinical course of the patient DVT prophylaxis: Subcutaneous heparin GI Prophylaxis: Pepcid Prognosis is guarded may consider transfer to psych unit tomorrow if keep improving and appoipiate
[2022-10-25] MEDS: FAMOTIDINE 20 MG/2 ML VIAL IV SCH (09:22)
[2022-10-25] MEDS: HEPARIN SODIUM,PORCINE/PF 5,000 UNIT/0.5 ML SYRINGE SQ SCH ×2 (09:22→22:05)
[2022-10-25] MEDS: SODIUM CHLORIDE 0.9% 1,000 ML IV SCH ×2 (09:22→22:05)
--- NOTE | 2022-10-25 09:50 | P.PN ---
Subjective Progress Note Date: 10/24/22 Patient was initially seen by Dr. Luis Felipe Latham. Please refer to his note for details. Patient is a 52-year-old male, who came with intentional overdosing on multiple medications for a suicide attempt. Patient came with altered mental status with toxic metabolic encephalopathy. Patient mentions that he took about 50-60 tablets of Flexeril 10 mg. Also took about 10 tablets of tramadol 50 mg. Also took some "handful" of Trinillex. Patient states that he is feeling better, but still feels somewhat lightheaded amount woozy with dizzy spells, when he is laying down, or getting up. It feels like he is "high". Patient says that he has smoked 1 pack per day of cigarettes since age 12. He did quit tobacco for almost 12 years, but then started back again in 2019, and has been smoking since. He smokes marijuana 3 times a week. He also uses crack almost every day, and the last time he did it was on 10/11/2022. He drinks alcohol occasionally. Some of the work-up consisted of: Patient is afebrile White blood cells 11K minimally slightly neutrophilic Calcium is 8.4 Sodium is 136 Creatinine is up 0.95 AST and ALT is within normal limits Ammonia is less than 9 Vitamin B12 is 380. Folate is 13.6 TSH is 4.22 Urinalysis is negative for any underlying urinary tract infection Urine drug screen is positive for tricyclic. The rest is not detected. Serum alcohol was less than 10 CT of the head is reported as no acute intracranial process. I personally reviewed the CT of the head and there is no acute or subacute ischemia. Objective - Vital Signs Vital signs: Vital Signs Temp 98.1 F 10/24/22 14:44 Pulse 87 10/24/22 14:44 Resp 15 10/24/22 14:44 BP 115/77 10/24/22 14:44 Pulse Ox 94 L 10/24/22 14:44 FiO2 Intake & Output 10/23/22 10/24/22 10/24/22 18:59 06:59 18:59 Intake Total 118 Output Total 1841 Balance -1841 118 Intake: Oral 118 Output: Urine 1841 Other: Voiding Method Urinal Urinal # Voids 2 1 - Exam Patient's mental status, speech and language functions are normal. She knows it is October and the year is , but could not tell the exact date, as he does not track the dates. Heis in [facility] in [facility]. Speech and language functions are normal. Cranial nerves are normal. Visual chacko are full, face is symmetric. On muscle strength testing, there is no pronator drift and the strength is normal in arms and legs. Reflexes are 2+ in the arms and legs and plantars downgoing. Sensory to touch is equal with no neglect. No ataxia for [id number] testing. Tone and bulk of muscles normal. Gait deferred. - Labs CBC & Chem 7: 10/23/22 05:25 10/23/22 05:25 Assessment and Plan Assessment: This is a 52-year-old gentleman who was recently discharged from outside facility because depression and recently he has altered mental status Altered mental status: Toxic encephalopathy and he stated that he overdosed on medications as a suicide attempt. (he took Flexeril, tramadol stated does not remember other medications). UDS positive for TCA. Mentation has improved and no focal deficits on examination. Multiple suicidal attempts per patient in past Chronic low back pain and right sciatica Depression Cocaine use (last used was on 10/11/2022). UDS positive for TCA Plan: * Patient's mentation is normal. He is still slightly dizzy off and on, likely due to adverse effect of overdose on medication * Neurological examination is completely normal. * No other neurological workup indicated. * Psychiatry on board for depression and suicide attempt. * Continue thiamine 100 mg daily. * Patient counseled about cessation of tobacco use, cocaine use and marijuana. * Neurologically clear.
[2022-10-25] MEDS: THIAMINE 100 MG TAB PO SCH (11:29)
[2022-10-25] MEDS: TAMSULOSIN 0.4 MG CAP.ER.24H PO SCH (11:29)
--- NOTE | 2022-10-25 13:16 | P.PN ---
Subjective This is a pleasant 52 years old male with past medical history of anxiety/depression and nicotine dependence Patient is very drowsy and could not provide information, he went up to verbal and tactile stimuli, as her wound about 2 questions and then go back to sleep. And then he mumbles he follows some COMMANDS and simple 1. However patient vance d denies some the systemic review Further information were obtained from the chart and staff. pt brought in via ems from scene. pt was found wondering around [facility] pt was recently d/c from [facility] at 9am for depression. pt presents with AMS at this time. Yesterday was in this facility for suicidal ideation Patient is afebrile. Blood pressure is 122/86 at 96/71 Labs showing mild leukocytosis of 11,000, associated CBC, INR, BMP, liver enzymes is unremarkable. Urine analysis is undetectable. Urine drug screen is positive for tricyclic antidepressant. Serum alcohol less than 10. Salicylate less than 1. Acetaminophen was less than 10 Chest x-ray: No acute process, mild cardiomegaly CT of the brain: No acute process. EKG showing normal sinus rhythm at [address]-T changes In the emergency room patient was started on normal saline and admitted with signs and neuro consult 10/23/2022 pt is awake today , say he was trying to kill himself wiht medication inlcuidng 60 pills of flexeril, and unkown amount of pills of tramadol, and a third medication he does not know the name of he admits depression and suicidal ideation and attempt, d/w staff: suicidal precaution , and psych consult and sitter at bed side no need for mri of brain or other neuro w/u as per my discussion with neuro service today his bp is on the low side and pt is asymptomatic, sbp around 90x, before was around 120s, if no improvement we will give more fluids.later on his bp was 120/80 10/24/2022 pt is clinically doing well and he looks stable for discharge , he is fully awake and oriented x3, no physical symptoms , he is very withdrawn and staying in bed all time i discussed the case with psychiatrist who accepted the pt to psych unit pt is medically stable for discharge and actually he was discharged to psych unit but this was held for insurance issues per staff pt in am said he does not want to go to psych unit and he was petitioned by staff, cert also is in chart. later on pt told me he is agreeable to be treated in psych unit he agrees with the management plan 10/25/2022 Patient lying in bed, with no new symptoms except for mild nausea that is been controlled with medication. Sitter at bedside and patient is cleared medically to go to the psych unit pending old and shortness of catheterization (apparently this facility and his medical insurance provider does not have contact with the [place] came [place] from, and staff will try to obtain 1 time payment to the facility so he can be admitted to my current psych unit, otherwise patient needed to be transferred to another psych unit other than) Case was discussed with the psychiatry team Objective - Vital Signs Vital signs: Vital Signs Temp 98.1 F 10/25/22 07:00 Pulse 76 10/25/22 07:00 Resp 14 10/25/22 07:00 BP 108/69 10/25/22 07:00 Pulse Ox 97 10/25/22 07:00 FiO2 Intake & Output 10/24/22 10/25/22 10/25/22 18:59 06:59 18:59 Intake Total 118 118 Balance 118 118 Intake: Oral 118 118 Other: Voiding Method Urinal # Voids 1 1 - Exam -GENERAL: The patient awakens to verbal stimuli but doesn't go back to sleep. Excess 1 or 2 questions appropriately and then mumbles. HEENT: Pupils are round and equally reacting to light. EOMI. No scleral icterus. No conjunctival pallor. Normocephalic, atraumatic. No pharyngeal erythema. No thyromegaly. CARDIOVASCULAR: S1 and S2 present. No murmurs, rubs, or gallops. PULMONARY: Chest is clear to auscultation, no wheezing , no crackles. ABDOMEN: Soft, nontender, nondistended, normoactive bowel sounds. No palpable organomegaly. MUSCULOSKELETAL: No joint swelling or deformity. EXTREMITIES: No cyanosis, clubbing, or pedal edema. NEUROLOGICAL: Gross neurological examination did not reveal any focal deficits. SKIN: No rashes. no petechiae. - Labs CBC & Chem 7: 10/23/22 05:25 10/23/22 05:25 Assessment and Plan Assessment: Altered mental status, metabolic encephalopathy derpression and siucidal attempt hypotension, secondary to above, improving medication overdose ,flexeril tramadol and third unknown medication History of depression Plan: pt is medically stable for dc t psych unit pending insurance authorization psychiatry service sitter and siucidal ideation Labs and medication were reviewed.. Continue same treatment. Continue with symptomatic treatment. Resume home medication. Monitor labs and vitals. DVT and GI prophylaxis. Further recommendations as per clinical course of the patient DVT prophylaxis: Subcutaneous heparin GI Prophylaxis: Pepcid Prognosis is guarded may consider transfer to psych unit tomorrow if keep improving and appoipiate
[2022-10-25 19:25] VITALS: RESP 16
[2022-10-25] MEDS: FAMOTIDINE 20 MG TAB PO SCH (22:05)
[2022-10-26 08:10] VITALS: BP 109/71; PULSE 78; TEMP 97.8
[2022-10-26] MEDS: FAMOTIDINE 20 MG TAB PO SCH (09:28)
[2022-10-26] MEDS: SODIUM CHLORIDE 0.9% 1,000 ML IV SCH (09:29)
[2022-10-26] MEDS: TAMSULOSIN 0.4 MG CAP.ER.24H PO SCH (09:29)
[2022-10-26] MEDS: THIAMINE 100 MG TAB PO SCH (09:29)
[2022-10-26] MEDS: HEPARIN SODIUM,PORCINE/PF 5,000 UNIT/0.5 ML SYRINGE SQ SCH (09:29)
--- NOTE | 2022-10-26 12:24 | P.PN ---
Subjective This is a pleasant 52 years old male with past medical history of anxiety/depression and nicotine dependence Patient is very drowsy and could not provide information, he went up to verbal and tactile stimuli, as her wound about 2 questions and then go back to sleep. And then he mumbles he follows some COMMANDS and simple 1. However patient vance d denies some the systemic review Further information were obtained from the chart and staff. pt brought in via ems from scene. pt was found wondering around [facility]. pt was recently d/c from [facility] at 9am for depression. pt presents with AMS at this time. Yesterday was in this facility for suicidal ideation Patient is afebrile. Blood pressure is 122/86 at 96/71 Labs showing mild leukocytosis of 11,000, associated CBC, INR, BMP, liver enzymes is unremarkable. Urine analysis is undetectable. Urine drug screen is positive for tricyclic antidepressant. Serum alcohol less than 10. Salicylate less than 1. Acetaminophen was less than 10 Chest x-ray: No acute process, mild cardiomegaly CT of the brain: No acute process. EKG showing normal sinus rhythm at [address]-T changes In the emergency room patient was started on normal saline and admitted with signs and neuro consult 10/23/2022 pt is awake today , say he was trying to kill himself wiht medication inlcuidng 60 pills of flexeril, and unkown amount of pills of tramadol, and a third medication he does not know the name of he admits depression and suicidal ideation and attempt, d/w staff: suicidal precaution , and psych consult and sitter at bed side no need for mri of brain or other neuro w/u as per my discussion with neuro service today his bp is on the low side and pt is asymptomatic, sbp around 90x, before was around 120s, if no improvement we will give more fluids.later on his bp was 120/80 10/24/2022 pt is clinically doing well and he looks stable for discharge , he is fully awake and oriented x3, no physical symptoms , he is very withdrawn and staying in bed all time i discussed the case with psychiatrist who accepted the pt to psych unit pt is medically stable for discharge and actually he was discharged to psych unit but this was held for insurance issues per staff pt in am said he does not want to go to psych unit and he was petitioned by staff, cert also is in chart. later on pt told me he is agreeable to be treated in psych unit he agrees with the management plan 10/25/2022 Patient lying in bed, with no new symptoms except for mild nausea that is been controlled with medication. Sitter at bedside and patient is cleared medically to go to the psych unit pending old and shortness of catheterization (apparently this facility and his medical insurance provider does not have contact with the [place] came in from, and staff will try to obtain 1 time payment to the facility so he can be admitted to my current psych unit, otherwise patient needed to be transferred to another psych unit other than) Case was discussed with the psychiatry team 10/26/2022 Patient medically remains stable for discharge pending placement As per my discussion with the psychiatry team patient insurance provider is not connected to this facility so either going to facilitate one time payment otherwise patient to be transferred to another facility to receive treatment with his mental illness I tried to explain to the patient and he verbalized understanding and acceptance Currently he is calm, no new complaints, sitter at bedside with suicidal precaution Objective - Vital Signs Vital signs: Vital Signs Temp 97.8 F 10/26/22 07:00 Pulse 78 10/26/22 07:00 Resp 16 10/26/22 07:00 BP 109/71 10/26/22 07:00 Pulse Ox 97 10/26/22 07:00 FiO2 Intake & Output 10/25/22 10/26/22 10/26/22 18:59 06:59 18:59 Intake Total 650 296 Balance 650 296 Intake: Oral 650 296 Other: Voiding Method Urinal # Voids 1 1 - Labs CBC & Chem 7: 10/23/22 05:25 10/23/22 05:25 Assessment and Plan Assessment: Altered mental status, metabolic encephalopathy derpression and siucidal attempt hypotension, secondary to above, improving medication overdose ,flexeril tramadol and third unknown medication History of depression Plan: pt is medically stable for dc t psych unit pending insurance authorization psychiatry service sitter and siucidal ideation Labs and medication were reviewed.. Continue same treatment. Continue with symptomatic treatment. Resume home medication. Monitor labs and vitals. DVT and GI prophylaxis. Further recommendations as per clinical course of the patient DVT prophylaxis: Subcutaneous heparin GI Prophylaxis: Pepcid Prognosis is guarded may consider transfer to psych unit tomorrow if keep improving and appoipiate
== END 2022-10-26 17:52 | DRG 817 ==
LOC: EC 12:24 → 6NMEDSUR 14:06 → OBSVTOIN 10-23 06:19
PROVIDERS: ADMIT Internal Medicine; ATTEND Internal Medicine
DX: T48.1X2A Poisoning by skeletal muscle relaxants [neuromuscular blocking agents], intentional self-harm, initial encounter (principal); T40.422A Poisoning by tramadol, intentional self-harm, initial encounter; I95.2 Hypotension due to drugs; G92.8 Other toxic encephalopathy; F17.210 Nicotine dependence, cigarettes, uncomplicated; Z71.51 Drug abuse counseling and surveillance of drug abuser; Z71.6 Tobacco abuse counseling; F12.10 Cannabis abuse, uncomplicated; F14.20 Cocaine dependence, uncomplicated; F31.9 Bipolar disorder, unspecified; F41.9 Anxiety disorder, unspecified; Z79.1 Long term (current) use of non-steroidal anti-inflammatories (NSAID); Z79.899 Other long term (current) drug therapy; Z28.311 Partially vaccinated for COVID-19; Z20.822 Contact with and (suspected) exposure to COVID-19; Z65.3 Problems related to other legal circumstances; G89.29 Other chronic pain; M54.30 Sciatica, unspecified side; Z91.51 Personal history of suicidal behavior; Z59.89 Other problems related to housing and economic circumstances; Z81.8 Family history of other mental and behavioral disorders
CPT/HCPCS: 36415; 70450; 71046; 80053; 80143; 80179; 80306; 80320; 81003; 82140; 82607; 82746; 84443; 84484; 85025; 85610; 85730; 87635; 93005; 94760; 99285

== ENCOUNTER 2022-10-26 15:25 | Inpatient (IN) | payer MEDICAID, OTHER ==
[2022-10-26] MEDS ORDERED: MAGNESIUM HYDROXIDE 2,400 MG/30 ML CUP PO PRN (16:33)
[2022-10-26] MEDS ORDERED: MAG HYDROX/AL HYDROX/SIMETH 30 ML CUP PO PRN (16:33)
[2022-10-26] MEDS ORDERED: IBUPROFEN 600 MG TAB PO PRN (16:33)
[2022-10-26] MEDS ORDERED: ALBUTEROL INHALER 60 PUFF/8 GM INHALER (MHU) INHALATION PRN (16:35)
[2022-10-26] MEDS ORDERED: CYCLOBENZAPRINE 10 MG TAB PO PRN (16:35)
[2022-10-26] MEDS ORDERED: haloperidoL 5 MG TAB PO PRN (16:37)
[2022-10-26] MEDS ORDERED: LORazepam 2 MG/ML INJ IM PRN (16:37)
[2022-10-26] MEDS ORDERED: HALOPERIDOL LACTATE 5 MG/ML 1 ML VIAL IM PRN (16:37)
[2022-10-26] MEDS ORDERED: LORazepam 1 MG TAB PO PRN (16:37)
[2022-10-26] MEDS: QUEtiapine 50 MG TAB PO SCH (20:58)
[2022-10-27] MEDS ORDERED: SERTRALINE 50 MG TAB PO SCH (09:00)
[2022-10-27] MEDS ORDERED: NICOTINE 14MG/24HR PATCH TRANSDERM SCH (09:00)
[2022-10-27] MEDS: NICOTINE GUM (POLACRILEX) 2 MG GUM BUCCAL PRN ×4 (09:05→20:54)
[2022-10-27 11:43] LABS: Basophils % (A) 0 %; Eosinophils # (A) 0.3 k/uL (0-0.7); Eosinophils % (A) 3 %; HCT 49.5 % (39.0-53.0); HGB 16.3 gm/dL (13.0-17.5); Lymphocytes # (A) 1.9 k/uL (1.0-4.8); Lymphocytes % (A) 21 %; MCH 30.9 pg (25.0-35.0); MCHC 32.9 g/dL (31.0-37.0); MCV 94.1 fL (80.0-100.0); Mean Platelet Volume 9.2; Monocytes # (A) 0.6 k/uL (0-1.0); Monocytes % (A) 7 %; Neutrophils % (A) 68 %; Platelet Count 246 k/uL (150-450); RBC 5.26 m/uL (4.30-5.90); RDW 12.9 % (11.5-15.5); WBC 8.8 k/uL (3.8-10.6)
[2022-10-27 12:01] LABS: ALT 21 U/L (4-49); AST 18 U/L (17-59); African American GFR (CKD) >90 (>60 ml/min/1.73 sqM); Albumin 4.5 g/dL (3.5-5.0); Alkaline Phosphatase 60 U/L (38-126); Anion Gap 9 mmol/L; Blood Urea Nitrogen 19 mg/dL (9-20); Calcium 9.4 mg/dL (8.4-10.2); Carbon Dioxide 29 mmol/L (22-30); Chloride 99 mmol/L (98-107); Glucose 88 mg/dL (74-99); Non-African American GFR(CKD) 79 (>60 ml/min/1.73 sqM); Potassium 4.8 mmol/L (3.5-5.1); Sodium 137 mmol/L (137-145); Total Bilirubin 1.1 mg/dL (0.2-1.3); Total Protein 8.1 g/dL (6.3-8.2)
--- NOTE | 2022-10-27 13:14 | P.HP ---
Psychiatric H&P - . H&P Date: 10/27/22 History & Physical: Allergies Allergy/AdvReac Type Severity Reaction Status Date / Time No Known Allergies Allergy Verified 10/22/22 15:07 Vital Signs Temp 97.6 F 10/27/22 06:49 Pulse 75 10/27/22 06:49 Resp 16 10/27/22 06:49 BP 106/68 10/27/22 06:49 Pulse Ox 97 10/26/22 18:45 FiO2 Intake & Output 10/26/22 10/27/22 10/27/22 18:59 06:59 18:59 Weight 92.986 kg 10/27/22 09:42 IDENTIFYING DATA: This patient is a 52-year-old male, currently was living with his girlfriend at her house, has 1 son, worked as a installment loan collector. HISTORY OF PRESENT ILLNESS: as per initial psychiatric evaluation while patient was seen by typewriters functional tester for consultation on the medical floors, "The patient presented to the hospital on 10/22 for altered mental status. According to ER report patient apparently left [facility] a few hours before he was evaluated there for depression and was discharged. Patient was a poor historian at the time of admission to the hospital. Patient's urinalysis was negative and his urine drug screen was positive for TCAs. Patient had apparently reported that he overdosed on various different pills including tramadol and Flexeril. Patient did endorse that it was a suicide attempt and wanted to . Patient was admitted medically and seen today by typewriters functional tester for evaluation. Patient had a one-to-one sitter at his side. He appears to be disinterested in conversation, mildly irritable. He claims that "nothing happened" however one asked more he states that "I took a bunch of pills" and was fairly vague about it. He states that he was "done with life" and has been having more suicidal thoughts lately. States that he is also been feeling more depressed. Claims that he does have some mild anxiety. States that he has been diagnosed with depression and also bipolar disorder in the past. States that he was incarcerated for 17 years in halfway and recently released. He claims that the charge was for home invasion. He states that he "lost everything again" and attempted to go to rehab last week for at [facility] for his cocaine use. He claims that he lost his car as well due to his finances and also his fiance. He states that he's been using crack cocaine about $250 a day." Patient was seen today and agreeable to speak to typewriters functional tester. Patient states that he just started taking the Seroquel and Zoloft. Claims that he is still fairly depressed and feels worthless. He claims "I'm just existing". Claims that his sleep has been on and off. Claims it the first time he took the Seroquel as last night. States that he has issues with chronic pain and was worried about getting into rehab with tramadol. States that his appetite is improving. At this time patient denies any current suicidal or homical ideations, intent or plan. Patien t denies any auditory, visual hallucinations and denies any paranoia or delusions. Patient claims that he is currently suicidal, no plan. Patients admits to using crack/cocaine as noted above, marijuana occasionally, cigarettes daily, alcohol occasionally. PAST PSYCHIATRIC HISTORY: Patient has a a history of depression and bipolar disorder, polysubstance abuse. Patient denies being on any psychiatric medications currently however states that he was previously on haldol, abilify, prozac and noted a poor response to prozac. Patient denies any previous psychiatric hospitalizations since his halfway stay where he was psychiatrically admitted [facility] in 2021. Patient denies any psychiatric outpatient follow- up. he states that he has a hx of 5 suicide attempts in the past from overdosing. Additional Past Medical History / Comment(s): CLBP Past Surgical History: No Surgical Hx Reported Past Psychological History: Anxiety, Depression Smoking Status: Current every day smoker Past Alcohol Use History: Occasional Past Drug Use History: Cocaine ALLERGIES: as per EMR. CHEMICAL DEPENDENCY HISTORY: as per HPI. FAMILY PSYCHIATRIC/SUBSTANCE USE HISTORY: mother has depression and brother has bipolar disorder SOCIAL HISTORY: Patient was born and raised in [place], [place], he obtained his GED. currently lives with his girlfriend, in a house, has 1 son, worked as a installment loan collector. claims that was was recently released from halfway where he spent 17 yrs there for home invasion. MENTAL STATUS EXAM: General Appearance: Patient appears to be well built, white hair, several tattoos, stated age is alert, mildly irritable yet is somewhat cooperative. Patient appears to have fair hygiene and grooming wearing hospital gown with poor eye contact. Behavior: Patient is calmly lying in bed without any agitated behavior. Less irritable. Speech: Patient's speech is fluent and nonpressured. [place], improving mildly Mood/Affect: Patient reports their mood is "depressed and anxious", improving mildly, affect is congruent Suicidality/Homicidality: Patient denies having any side ideations, endorsing suicidal thoughts. Perceptions: Patient denies any visual hallucinations and denies any auditory hallucinations Though content/process: There is no evidence of any delusional thought content and thought process is linear and goal-directed. Memory and concentration: AOX3, grossly intact for the purposes of this session. Can spell "WORLD" backwards Judgment and insight: poor, improving mildly IMPRESSIONS: Depressive disorder unspecified, rule out bipolar disorder depressed mood versus major depressive disorder Suicide attempt by overdose on medications Cocaine use disorder severe dependence Cannabis use disorder mild abuse Alcohol use disorder mild Nicotine dependence STRENGTHS/WEAKNESSES: strength is that patient is [resilient]. Weakness is that patient [has poor judgment and is impulsive and has a history of substance abuse.] INTELLECT: [average] PLAN: -Patient is admitted under [voluntary] status to MHU for stabilization of psychiatric symptoms and safety. Patient has signed [adult voluntary form and] [medication consent] and is placed in patient's chart. -Medications : Will start patient on Seroquel 50 mg daily at bedtime for mood stabilization/insomnia, plan to increase as tolerated. Switched Zoloft with Cymbalta 20 mg twice a day for mood/anxiety/neuropathic pain. -Ativan [and Haldol] PRN for agitation/aggression [-Patient was counselled on substance abuse and desired to cut back on use] -Patient was informed of the risks, benefits and side effects of the medication and patient verbally consented to taking the medications. Patient signed med consent form and was placed in chart. -Internal Medicine consult to perform medical evaluation and physical. -NRT - [nicotine gum] -SW on board for discharge planning. Encourage patient to participate in groups to work on coping skills. patient claims that he would like to go to rehab upon discharge. 10/27/22 13:10 10/27/22 13:13
[2022-10-27] MEDS: DULoxetine HCL 20 MG CAPSULE.DR PO SCH ×2 (13:41→20:54)
[2022-10-27] MEDS: QUEtiapine 50 MG TAB PO SCH (20:54)
--- NOTE | 2022-10-28 06:14 | P.MDCNMH ---
Past Medical History Additional Past Medical History / Comment(s): CLBP History of Any Multi-Drug Resistant Organisms: None Reported Past Surgical History: No Surgical Hx Reported Past Psychological History: Anxiety, Depression Smoking Status: Current every day smoker Past Alcohol Use History: Occasional Past Drug Use History: Cocaine Medications and Allergies Home Medications Medication Instructions Recorded Confirmed Type Albuterol Sulfate [Albuterol 2 puff PO RT-Q6H PRN 10/22/22 10/26/22 History Sulfate Hfa] Cyclobenzaprine [Flexeril] 10 mg PO Q8H PRN 10/22/22 10/26/22 History Ibuprofen [Motrin] 600 mg PO Q6H PRN 10/22/22 10/26/22 History Tamsulosin [Flomax] 0.4 mg PO DAILY 10/22/22 10/26/22 History Vortioxetine Hydrobromide 10 mg PO DAILY 10/22/22 10/26/22 History [Trintellix] traMADol HCL 50 mg PO Q8H PRN 10/22/22 10/26/22 History Thiamine [Vitamin B-1] 100 mg PO DAILY tab 10/24/22 10/26/22 Rx Allergies Allergy/AdvReac Type Severity Reaction Status Date / Time No Known Allergies Allergy Verified 10/22/22 15:07 Physical Exam Vitals: Vital Signs Temp Pulse Resp BP Pulse Ox 10/28/22 05:56 98 F 65 18 132/76 99 10/27/22 06:49 97.6 F 75 16 106/68 Results CBC & Chem 7: 10/27/22 10:41 10/27/22 10:41
[2022-10-28] MEDS: DULoxetine HCL 20 MG CAPSULE.DR PO SCH (08:40)
[2022-10-28] MEDS: NICOTINE GUM (POLACRILEX) 2 MG GUM BUCCAL PRN ×3 (08:40→20:56)
--- NOTE | 2022-10-28 10:33 | P.PN ---
Progress Note - Text Progress Note Date: 10/28/22 Interval History: Patient was seen taking part in activities group this morning and was directable and agreeable to speak with com writer in the office. Patient states that he is Ayo Trujillo. Claims that he likes the Cymbalta. Claimed that his anxiety is also improving mildly since yesterday. He was asking about other medication options which were all explained. He states that he did not sleep well last night and we spoke about increasing the Seroquel which she is okay with. States that he is trying to go to groups. Continues to be fairly focused on getting into rehab, she is denying any withdrawal symptoms. He states that he spoke with access line to get an intake date at [place] however has not gotten it yet. At this time patient denies any suicidal or homical ideations, intent or plan. Patient denies any auditory, visual hallucinations and denies any paranoia or delusions. Patient denies any side effects from the medications and has been compliant with meds. Mental Status Exam: General Appearance: Patient appears to be well built, white hair, several tattoos, stated age is alert, more cooperative. Patient appears to have fair hygiene and grooming wearing hospital gown with improving eye contact. Behavior: Patient is calmly lying in bed without any agitated behavior. Speech: Patient's speech is fluent and nonpressured. [place], improving mildly Mood/Affect: Patient reports their mood is "a bit better", improving mildly, affect is congruent Suicidality/Homicidality: Patient denies having any side ideations, endorsing suicidal thoughts. Perceptions: Patient denies any visual hallucinations and denies any auditory hallucinations Though content/process: There is no evidence of any delusional thought content and thought process is linear and goal-directed. Memory and concentration: AOX3, grossly intact for the purposes of this session Judgment and insight: improving mildly IMPRESSIONS: Depressive disorder unspecified, rule out bipolar disorder depressed mood versus major depressive disorder Suicide attempt by overdose on medications Cocaine use disorder severe dependence Cannabis use disorder mild abuse Alcohol use disorder mild Nicotine dependence PLAN: -Patient is admitted under voluntary status to MHU for stabilization of psychiatric symptoms and safety. Patient has signed adult voluntary form and medication consent and is placed in patient's chart. -Medications : increase Seroquel 100 mg daily at bedtime for mood stabilization/insomnia. increase Cymbalta 30 mg twice a day for mood/anxiety/neuropathic pain. -Ativan and Haldol PRN for agitation/aggression -NRT - nicotine gum -SW on board for discharge planning. Encourage patient to participate in groups to work on coping skills. patient claims that he would like to go to rehab upon discharge, plan will be to discharge patient directly to rehab from the unit. Will likely proceed with discharge monday.
[2022-10-28] MEDS: QUEtiapine 100 MG TAB PO SCH (20:54)
[2022-10-28] MEDS: DULoxetine HCL 30 MG CAPSULE.DR PO SCH (20:54)
[2022-10-29] MEDS: NICOTINE GUM (POLACRILEX) 2 MG GUM BUCCAL PRN ×4 (09:00→20:43)
[2022-10-29] MEDS: DULoxetine HCL 30 MG CAPSULE.DR PO SCH ×2 (09:00→21:48)
--- NOTE | 2022-10-29 11:35 | P.PN ---
Subjective Progress Note Date: 10/29/22 Principal diagnosis: IMPRESSIONS: Depressive disorder unspecified, rule out bipolar disorder depressed mood versus major depressive disorder Cocaine use disorder severe dependence Cannabis use disorder mild abuse Alcohol use disorder mild Nicotine dependence Patient Name: Alexis Willoughby Date of : 72 Patient Status: Inpatient Attending Provider: Thomas Mccallum Subjective data: Patient reports that he's feeling somewhat better He admits that he has spent 17 years in the senior care and was heavily into cocaine He says that he was with a family member who brought up cocaine and ended up using it and having a relapse He admits that he wants to do better and that the medication seems to be helping says that he is hoping that he will be able to go to a rehab center Patient denies any side effects from the medications and has been compliant with meds. Mental Status Exam: General Appearance: Patient appears to be well built, white hair, several tattoos, stated age is alert, more cooperative. Patient unkept appearance and dirty looking Behavior: Patient does not exhibit any agitated behavior. Speech: Patient's speech is fluent and nonpressured. [place], improving mildly Mood/Affect: Patient reports their mood is "a bit better", improving mildly, affect is congruent Suicidality/Homicidality: Patient denies having any side ideations, endorsing suicidal thoughts. Perceptions: Patient denies any visual hallucinations and denies any auditory hallucinations Though content/process: There is no evidence of any delusional thought content and thought process is linear and goal-directed. Memory and concentration: AOX3, grossly intact for the purposes of this session Judgment and insight: improving mildly IMPRESSIONS: Depressive disorder unspecified, rule out bipolar disorder depressed mood versus major depressive disorder Suicide attempt by overdose on medications Cocaine use disorder severe dependence Cannabis use disorder mild abuse Alcohol use disorder mild Nicotine dependence PLAN: -Patient is admitted under voluntary status to MHU for stabilization of psychiatric symptoms and safety. Patient has signed adult voluntary form and medication consent and is placed in patient's chart. -Medications : Seroquel 100 mg daily at bedtime for mood stabilization/insomnia. Cymbalta 30 mg twice a day for mood/anxiety/neuropathic pain. -Ativan and Haldol PRN for agitation/aggression -NRT - nicotine gum -SW on board for discharge planning. Encourage patient to participate in groups to work on coping skills. patient claims that he would like to go to rehab upon discharge, plan will be to discharge patient directly to rehab from the unit. Will likely proceed with discharge monday. Sal Morejon M.D. 10/29/2022 Objective - Vital Signs Vital signs: Vital Signs Temp 98.3 F 10/29/22 05:00 Pulse 83 10/29/22 05:00 Resp 17 10/29/22 05:00 BP 105/59 10/29/22 05:00 Pulse Ox 97 10/29/22 05:00 FiO2 - Labs CBC & Chem 7: 10/27/22 10:41 10/27/22 10:41
[2022-10-29] MEDS: QUEtiapine 100 MG TAB PO SCH (21:48)
[2022-10-30] MEDS: DULoxetine HCL 30 MG CAPSULE.DR PO SCH ×2 (08:41→22:36)
[2022-10-30] MEDS: NICOTINE GUM (POLACRILEX) 2 MG GUM BUCCAL PRN ×4 (08:42→21:14)
--- NOTE | 2022-10-30 10:00 | P.PN ---
Subjective Progress Note Date: 10/30/22 Principal diagnosis: IMPRESSIONS: Depressive disorder unspecified, rule out bipolar disorder depressed mood versus major depressive disorder Cocaine use disorder severe dependence Cannabis use disorder mild abuse Alcohol use disorder mild Nicotine dependence Patient Name: Alexis Willoughby Date of : 72 Patient Status: Inpatient Attending Provider: Thomas Mccallum Subjective data: Patient was seen for a follow-up Patient reports that he had a very restful night and the currently feels much more positive He states that he is not having any suicidal or homicidal ideations He says that emotionally he started feeling better He says that he is hoping to go to the substance use program at [place] and that have applied for his admission there Mental Status Exam: General Appearance: Patient appears to be well built, white hair, several tattoos, stated age is alert, more cooperative. Patient unkept appearance and dirty looking Behavior: Patient does not exhibit any agitated behavior. Speech: Patient's speech is fluent and nonpressured. [place], improving mildly Mood/Affect: Patient reports their mood is "a bit better", improving mildly, affect is congruent Suicidality/Homicidality: Patient denies having any side ideations, endorsing suicidal thoughts. Perceptions: Patient denies any visual hallucinations and denies any auditory hallucinations Though content/process: There is no evidence of any delusional thought content and thought process is linear and goal-directed. Memory and concentration: AOX3, grossly intact for the purposes of this session Judgment and insight: improving mildly IMPRESSIONS: Depressive disorder unspecified, rule out bipolar disorder depressed mood versus major depressive disorder Suicide attempt by overdose on medications Cocaine use disorder severe dependence Cannabis use disorder mild abuse Alcohol use disorder mild Nicotine dependence PLAN: -Patient is admitted under voluntary status to MHU for stabilization of psychiatric symptoms and safety. Patient has signed adult voluntary form and medication consent and is placed in patient's chart. -Medications : Seroquel 100 mg daily at bedtime for mood stabilization/insomnia. Cymbalta 30 mg twice a day for mood/anxiety/neuropathic pain. -Ativan and Haldol PRN for agitation/aggression -NRT - nicotine gum -SW on board for discharge planning. Encourage patient to participate in groups to work on coping skills. patient claims that he would like to go to rehab upon discharge, plan will be to discharge patient directly to rehab from the unit. Will likely proceed with discharge monday. Sal Morejon M.D. 10/30/2022 Objective - Vital Signs Vital signs: Vital Signs Temp 98.2 F 10/30/22 06:57 Pulse 79 10/30/22 06:57 Resp 18 10/30/22 06:57 BP 108/59 10/30/22 06:57 Pulse Ox 99 10/30/22 06:57 FiO2 - Labs CBC & Chem 7: 10/27/22 10:41 10/27/22 10:41
[2022-10-30] MEDS: QUEtiapine 100 MG TAB PO SCH (22:37)
[2022-10-31] MEDS: DULoxetine HCL 30 MG CAPSULE.DR PO SCH ×2 (08:23→22:23)
[2022-10-31] MEDS: NICOTINE GUM (POLACRILEX) 2 MG GUM BUCCAL PRN ×4 (08:23→22:25)
--- NOTE | 2022-10-31 11:55 | P.PN ---
Progress Note - Text Progress Note Date: 10/31/22 Interval History: Patient was seen taking part in activities group this morning and was directable and agreeable to speak with greeting card writer in the office. Patient claims thathe is doing a bit better today. States that his weekend went better and states that the medications have been helping. He states that he initially found the Seroquel to be fairly sedating and helping him with sleep however at this time it starting to plateau and wear off. We spoke about the different options and patient was agreeable to try Vistaril scheduled at nighttime to help with sleep and anxiety. States that his appetite is fair at this time. He continues to claim that he wants to go to rehab directly from the unit and was given an update about this. He will be making a arrangement for a ride for tomorrow morning to go to rehab. he is denying any withdrawal symptoms. At this time patient denies any suicidal or homical ideations, intent or plan. Patient denies any auditory, visual hallucinations and denies any paranoia or delusions. Patient denies any side effects from the medications and has been compliant with meds. Mental Status Exam: General Appearance: Patient appears to be well built, white hair, several tattoos, stated age is alert, more cooperative. Patient appears to have fair hygiene and grooming wearing hospital gown with improving eye contact. Behavior: Patient is calmly lying in bed without any agitated behavior. Speech: Patient's speech is fluent and nonpressured. [place], improving mildly Mood/Affect: Patient reports their mood is "good", improving mildly, affect is congruent Suicidality/Homicidality: Patient denies having any side ideations, endorsing suicidal thoughts. Perceptions: Patient denies any visual hallucinations and denies any auditory hallucinations Though content/process: There is no evidence of any delusional thought content and thought process is linear and goal-directed. Focused on rehab and medications. Memory and concentration: AOX3, grossly intact for the purposes of this session Judgment and insight: improving mildly IMPRESSIONS: Depressive disorder unspecified, rule out bipolar disorder depressed mood versus major depressive disorder Suicide attempt by overdose on medications Cocaine use disorder severe dependence Cannabis use disorder mild abuse Alcohol use disorder mild Nicotine dependence PLAN: -Patient is admitted under voluntary status to MHU for stabilization of psychiatric symptoms and safety. Patient has signed adult voluntary form and medication consent and is placed in patient's chart. -Medications : Seroquel 100 mg daily at bedtime for mood stabilization/insomnia. Cymbalta 30 mg twice a day for mood/anxiety/neuropathic pain. added vistaril 50 mg qhs for insomnia/anxiety. -Ativan and Haldol PRN for agitation/aggression -NRT - nicotine gum -SW on board for discharge planning. Encourage patient to participate in groups to work on coping skills. patient claims that he would like to go to rehab upon discharge, plan will be to discharge patient tomorrow directly to rehab. patient is cleared psychiatrically however waiting on approval from rehab. patient is arranging transportation with [facility] for tomorrow morning.
[2022-10-31] MEDS ORDERED: hydrOXYzine pamoate 25 MG CAP PO SCH (21:00)
[2022-10-31] MEDS: QUEtiapine 100 MG TAB PO SCH (22:23)
[2022-11-01] MEDS: NICOTINE GUM (POLACRILEX) 2 MG GUM BUCCAL PRN (06:44)
[2022-11-01 06:57] VITALS: BP 106/69; PULSE 99; RESP 19; TEMP 98.6
[2022-11-01] MEDS: DULoxetine HCL 30 MG CAPSULE.DR PO SCH (08:21)
--- NOTE | 2022-11-01 09:06 | P.DS ---
Providers Date of admission: 10/26/22 17:54 Expected date of discharge: 11/01/22 Attending physician: Thomas Mccallum MD Consults: 10/26/22 16:33 Consult Physician Routine Consulting Provider: [facility] Consult Reason/Comments: H&P Do you want consulting provider notified?: Yes Primary care physician: Stated None - Discharge Diagnosis(es) (1) Bipolar depression Current Visit: Yes Status: Acute Priority: High (2) Suicide attempt by drug overdose Current Visit: Yes Status: Acute Priority: High (3) Cocaine use disorder, severe, dependence Current Visit: Yes Status: Acute Priority: High (4) Cannabis use disorder, mild, abuse Current Visit: Yes Status: Acute Priority: Medium (5) Alcohol use disorder, mild, abuse Current Visit: Yes Status: Acute Priority: Medium (6) Nicotine dependence Current Visit: Yes Status: Acute Priority: Low Hospital Course: Admission HPI: Admission note was completed by check writer salesperson "This patient is a 52-year-old male, currently was living with his girlfriend at her house, has 1 son, worked as a ur coordinator. as per initial psychiatric evaluation while patient was seen by check writer salesperson for consultation on the medical floors, "The patient presented to the hospital on 10/22 for altered mental status. According to ER report patient apparently left [facility] a few hours before he was evaluated there for depression and was discharged. Patient was a poor historian at the time of admission to the hospital. Patient's urinalysis was negative and his urine drug screen was positive for TCAs. Patient had apparently reported that he overdosed on various different pills including tramadol and Flexeril. Patient did endorse that it was a suicide attempt and wanted to . Patient was admitted medically and seen today by check writer salesperson for evaluation. Patient had a one-to-one sitter at his side. He appears to be disinterested in conversation, mildly irritable. He claims that "nothing happened" however one asked more he states that "I took a bunch of pills" and was fairly vague about it. He states that he was "done with life" and has been having more suicidal thoughts lately. States that he is also been feeling more depressed. Claims that he does have some mild anxiety. States that he has been diagnosed with depression and also bipolar disorder in the past. States that he was [facility] and recently [place]. He claims that the charge was for home invasion. He states that he "lost everything again" and attempted to go to rehab last week for at [facility] for his cocaine use. He claims that he lost his car as well due to his finances and also his fiance. He states that he's been using crack cocaine about $250 a day." Patient was seen today and agreeable to speak to check writer salesperson. Patient states that he just started taking the Seroquel and Zoloft. Claims that he is still fairly depressed and feels worthless. He claims "I'm just existing". Claims that his sleep has been on and off. Claims it the first time he took the Seroquel as last night. States that he has issues with chronic pain and was worried about getting into rehab with tramadol. States that his appetite is improving. At this time patient denies any current suicidal or homical ideations, intent or plan. Patient denies any auditory, visual hallucinations and denies any paranoia or delusions. Patient claims that he is currently suicidal, no plan. Patients admits to using crack/cocaine as noted above, marijuana occasionally, cigarettes daily, alcohol occasionally." Hospital course: Upon admission to the unit patient was directable and agreeable to commence treatment and signed adult voluntary form. Patient got along well with other patients on the unit and followed unit protocol. Patient was compliant with the medications and denied any side effects throughout hospital course. Patient was started on [Seroquel and increased the dose of 100 mg daily at bedtime for insomnia/mood stabilization, Vistaril 50 mg daily at bedtime scheduled for anxiety/insomnia, Cymbalta 30 mg twice a day for mood/anxiety/neuropathic pain. Patient spoke of his stressors and engaged in therapy both group and individual. Patient was also seen by medical team for history and physical exam. Throughout the course of the hospitalization patient gradually improved with regards to mood, anxiety, suicidal thoughts, sleep and returned back to their baseline level of functioning. On the day of discharge patient denied any suicidal or homicidal ideations intent or plan denied any auditory or visual hallucinations. Patient endorsed wanting to live for his sobriety and to find home. The patient denied any access to guns or weapons. Patient denied any paranoia and did not endorse any delusions. Patient does have a significant history of substance abuse and was counseled on abstaining from all substances including alcohol and marijuana. Patient called the access line and was able to get into [facility], he will be picked up today by his ride and taken their for intake this morning. Patient was also counseled on the medications and need for regular compliance and was encouraged to follow-up with their outpatient appointment for mental health and also for primary care. Mental status exam: General Appearance: Patient appears to have longer grey hair, several tattoos, stated age is alert, pleasant, and cooperative. Patient is in no acute distress and has improved hygiene and grooming Behavior: Patient is calmly seated without any agitated behavior. Speech: Patient's speech is fluent and nonpressured. Mood/Affect: Patient reports their mood is "good", affect is congruent and euthymic. Suicidality/Homicidality: Patient denies having any suicidal or homicidal ideation intent or plan. Perceptions: Patient denies any auditory or visual hallucinations. Though content/process: There is no evidence of any delusional thought content and thought process is linear and goal-directed. more future oriented Memory and concentration: AOX3, grossly intact for the purposes of this session. Can spell "WORLD" backwards correctly. Judgment and insight: improved with guarded prognosis Impression: Bipolar depression Suicide attempt by drug overdose Cocaine use disorder severe dependence Cannabis use disorder mild abuse Alcohol use disorder mild Nicotine dependence Plan: -Continue with discharge today as patient has improved and stabilized psychiatrically and is not currently an imminent threat to himself and/or others. Patient will remain at chronically elevated risk for harm to self and/or others due to his impulsivity and polysubstance abuse. -Continue medications: Seroquel 100 mg daily at bedtime for mood stabilization/insomnia, Cymbalta 30 mg twice a day for mood/anxiety/neuropathic pain, Vistaril 50 mg scheduled daily at bedtime for insomnia/anxiety. -Patient was counseled on the need for medication compliance and appropriate follow-up at mental health and also primary care for medical issues. Patient verbalized understanding and agreed. -Social work to help coordinate patient's discharge today to [facility] for inpatient rehab. Social work also to arrange for patients follow up appointments for psychiatric care along with follow up with primary care provider. -Patient counseled on abstaining from recreational drugs and marijuana and alcohol. Was informed/educated on the adverse effects on their physical and mental health. Patient verbally agreed and understood. -Patient was instructed to return to the hospital or seek immediate medical care if their psychiatric or medical symptoms do worsen or reoccur. Allergies Allergy/AdvReac Type Severity Reaction Status Date / Time No Known Allergies Allergy Verified 10/22/22 15:07 Laboratory Results WBC 8.8 k/uL (3.8-10.6) 10/27/22 10:41 RBC 5.26 m/uL (4.30-5.90) 10/27/22 10:41 Hgb 16.3 gm/dL (13.0-17.5) 10/27/22 10:41 Hct 49.5 % (39.0-53.0) 10/27/22 10:41 MCV 94.1 fL (80.0-100.0) 10/27/22 10:41 MCH 30.9 pg (25.0-35.0) 10/27/22 10:41 MCHC 32.9 g/dL (31.0-37.0) 10/27/22 10:41 RDW 12.9 % (11.5-15.5) 10/27/22 10:41 Plt Count 246 k/uL (150-450) 10/27/22 10:41 MPV 9.2 10/27/22 10:41 Neutrophils % 68 % 10/27/22 10:41 Lymphocytes % 21 % 10/27/22 10:41 Monocytes % 7 % 10/27/22 10:41 Eosinophils % 3 % 10/27/22 10:41 Basophils % 0 % 10/27/22 10:41 Neutrophils # 6.0 k/uL (1.3-7.7) 10/27/22 10:41 Lymphocytes # 1.9 k/uL (1.0-4.8) 10/27/22 10:41 Monocytes # 0.6 k/uL (0-1.0) 10/27/22 10:41 Eosinophils # 0.3 k/uL (0-0.7) 10/27/22 10:41 Basophils # 0.0 k/uL (0-0.2) 10/27/22 10:41 Sodium 137 mmol/L (137-145) 10/27/22 10:41 Potassium 4.8 mmol/L (3.5-5.1) 10/27/22 10:41 Chloride 99 mmol/L (98-107) 10/27/22 10:41 Carbon Dioxide 29 mmol/L (22-30) 10/27/22 10:41 Anion Gap 9 mmol/L 10/27/22 10:41 BUN 19 mg/dL (9-20) 10/27/22 10:41 Creatinine 1.08 mg/dL (0.66-1.25) 10/27/22 10:41 Est GFR (CKD-EPI)AfAm >90 (>60 ml/min/1.73 sqM) 10/27/22 10:41 Est GFR (CKD-EPI)NonAf 79 (>60 ml/min/1.73 sqM) 10/27/22 10:41 Glucose 88 mg/dL (74-99) 10/27/22 10:[address] Glu mg/dL 108 mg/dL 10/27/22 10:41 Hemoglobin A1c 5.4 % (<=6.0) 10/27/22 10:41 Calcium 9.4 mg/dL (8.4-10.2) 10/27/22 10:41 Total Bilirubin 1.1 mg/dL (0.2-1.3) 10/27/22 10:41 AST 18 U/L (17-59) 10/27/22 10:41 ALT 21 U/L (4-49) 10/27/22 10:41 Alkaline Phosphatase 60 U/L (38-126) 10/27/22 10:41 Total Protein 8.1 g/dL (6.3-8.2) 10/27/22 10:41 Albumin 4.5 g/dL (3.5-5.0) 10/27/22 10:41 Vital Signs Temp 98.6 F 11/01/22 06:00 Pulse 99 11/01/22 06:00 Resp 19 11/01/22 06:00 BP 106/69 11/01/22 06:00 Pulse Ox 95 11/01/22 06:00 FiO2 Patient Condition at Discharge: Stable Plan - Discharge Summary Discharge Rx Participant: No New Discharge Prescriptions: New DULoxetine HCL [Cymbalta] 30 mg PO BID 30 Days #60 cap Nicotine Gum (Polacrilex) [Nicorette] 2 mg BUCCAL Q2HR PRN 30 Days #240 pieceofgum PRN Reason: Nicotine Cravings QUEtiapine [SEROquel] 100 mg PO HS 30 Days #30 tab hydrOXYzine pamoate [Vistaril] 50 mg PO HS 30 Days #60 cap Ibuprofen [Motrin] 600 mg PO Q6HR PRN 30 Days #120 tab PRN Reason: Moderate Pain (Scale 4 To 6) Continue Cyclobenzaprine [Flexeril] 10 mg PO Q8H PRN PRN Reason: Pain Albuterol Sulfate [Albuterol Sulfate Hfa] 2 puff PO RT-Q6H PRN #1 each PRN Reason: Shortness Of Breath Discontinued traMADol HCL 50 mg PO Q8H PRN PRN Reason: Pain Vortioxetine Hydrobromide [Trintellix] 10 mg PO DAILY Thiamine [Vitamin B-1] 100 mg PO DAILY tab Tamsulosin [Flomax] 0.4 mg PO DAILY Ibuprofen [Motrin] 600 mg PO Q6H PRN PRN Reason: Fever And/ Or Pain Discharge Medication List Cyclobenzaprine [Flexeril] 10 mg PO Q8H PRN 10/22/22 [History] Albuterol Sulfate [Albuterol Sulfate Hfa] 2 puff PO RT-Q6H PRN #1 each 11/01/22 [Rx] DULoxetine HCL [Cymbalta] 30 mg PO BID 30 Days #60 cap 11/01/22 [Rx] Ibuprofen [Motrin] 600 mg PO Q6HR PRN 30 Days #120 tab 11/01/22 [Rx] Nicotine Gum (Polacrilex) [Nicorette] 2 mg BUCCAL Q2HR PRN 30 Days #240 pie ceofgum 11/01/22 [Rx] QUEtiapine [SEROquel] 100 mg PO HS 30 Days #30 tab 11/01/22 [Rx] hydrOXYzine pamoate [Vistaril] 50 mg PO HS 30 Days #60 cap 11/01/22 [Rx] Follow up Appointment(s)/Referral(s): [facility] [Outside] - 11/01/22 10:15 am (Intake 11/01 @ 10:15) [facility] - [facility] Week Patient Instructions/Handouts: Cocaine Abuse (DC), Mood Disorders (DC) Discharge Disposition: OTHER INSTITUTION NOT DEFINED
== END 2022-11-01 09:42 | disposition other institution (70) | DRG 753 ==
LOC: 3MHU 17:54
PROVIDERS: ADMIT Psychiatry & Neurology Psychiatry; ATTEND Psychiatry & Neurology Psychiatry
DX: F31.30 Bipolar disorder, current episode depressed, mild or moderate severity, unspecified (principal); F10.10 Alcohol abuse, uncomplicated; F12.10 Cannabis abuse, uncomplicated; F14.20 Cocaine dependence, uncomplicated; F17.210 Nicotine dependence, cigarettes, uncomplicated; F41.9 Anxiety disorder, unspecified; G47.00 Insomnia, unspecified; G89.29 Other chronic pain; T48.1X2A Poisoning by skeletal muscle relaxants [neuromuscular blocking agents], intentional self-harm, initial encounter; Z79.899 Other long term (current) drug therapy; Z81.8 Family history of other mental and behavioral disorders; Z91.51 Personal history of suicidal behavior
CPT/HCPCS: 80053; 83036; 85025